=== PATIENT | female | born 1970 | race Caucasian/White ===

== ENCOUNTER 2021-10-17 09:36 | Emergency (ER) | payer OTHER, SELFPAY ==
[2021-10-17 09:57] VITALS: BP 123/80; PULSE 80; RESP 16; TEMP 36.6; O2SAT 98
--- NOTE | 2021-10-17 11:32 | ED.DENTAL ---
HPI - Dental/Oral General Chief complaint: Dental/Oral Stated complaint: Cold sores Time Seen by Provider: 10/17/21 11:23 Source: patient and RN notes reviewed Mode of arrival: ambulatory Limitations: no limitations History of Present Illness HPI Narrative: Patient presents today complaining of lesions to her left upper lip that she noted this morning. She did report some tingling to the upper lip yesterday prior to noting the lesions. She does have history of genital herpes, but no herpes lesions to the mouth. Reports some mild pain. She has tried no [id number] interventions prior to arrival. Related Data Home Medications Medication Instructions Recorded Confirmed aspirin [Adult Low Dose Aspirin] 81 mg PO DAILY 10/17/21 10/17/21 atorvastatin 10/17/21 cetirizine [Zyrtec] 10 mg PO DAILY 10/17/21 10/17/21 famotidine 10/17/21 levothyroxine 10/17/21 metformin 10/17/21 metoprolol tartrate 10/17/21 Allergies Allergy/AdvReac Type Severity Reaction Status Date / Time ibuprofen Allergy Rash Verified 10/17/21 10:11 Penicillins Allergy Swelling Verified 10/17/21 10:11 of Lip/Tongue/Throat Review of Systems Review of Systems: CONSTITUTIONAL: Denies body aches, fever, chills, or sweats. EYES: Denies visual changes, redness, or discharge. ENT: Denies rhinorrhea, congestion, sore throat, or otalgia.+ Lip lesion CARDIOVASCULAR: Denies chest pain, palpitations, or edema. RESPIRATORY: Denies cough or dyspnea. GASTROINTESTINAL: Denies abdominal pain, nausea, vomiting, or diarrhea. GENITOURINARY: Denies dysuria or hematuria. SKIN: Denies rash, itching, or wounds. MUSCULOSKELETAL: Denies back pain, joint pain, or myalgia. NEUROLOGIC: Denies headache, numbness, tingling, or weakness. PSYCH: Denies depression or anxiety. PMFSH Comments At time of signature, I have reviewed and agree with nursing past medical, surgical, social and family history unless otherwise noted. Please see nursing chart for further information. There is no relevant family history pertinent to the presenting complaint Exam Narrative: GENERAL: Well-appearing, well-nourished, and in no acute distress. HEAD: Normocephalic, atraumatic. EYES: EOMI. No redness or drainage. Conjunctivae normal. ENT: Mucous membranes pink and moist. Cluster of tiny vesicular lesions to the left upper lip. Mildly tender to palpation. NECK: Normal AROM. CHEST: No respiratory distress. EXTREMITIES: Normal range of motion. No edema. SKIN: Warm, dry, no rash. Capillary refill normal. Normal skin turgor. NEURO: No focal deficits. Alert and oriented x3. Gait steady. PSYCH: Normal affect. No signs of depression or anxiety. Course Vital Signs Vital signs: Vital Signs Temperature 98 F 10/17/21 09:57 Pulse Rate 80 10/17/21 09:57 Respiratory Rate 16 10/17/21 09:57 Blood Pressure 123/80 10/17/21 09:57 Pulse Oximetry 98 10/17/21 09:57 Temperature 98 F 10/17/21 09:57 Pulse Rate 80 10/17/21 09:57 Respiratory Rate 16 10/17/21 09:57 Blood Pressure 123/80 10/17/21 09:57 Pulse Oximetry 98 10/17/21 09:57 Reviewed. Pt has been instructed to follow up with her PCP regarding her elevated blood pressure today. MDM - Dental/Oral Differential Diagnosis Differential diagnosis: Likely other (Impetigo, herpes simplex) Critical Care Time Critical Care Time Critical Care Time: No Discharge Plan Discharge Clinical Impression: Primary herpes simplex infection of lips Patient Disposition: Home, Self-Care Condition: Stable Instructions: Oral Herpes Simplex Virus Infections (ED) Additional Instructions: Please take the acyclovir as prescribed for your cold sores. Take Tylenol or ibuprofen for pain. Follow-up with your doctor with any concerns. Patient Language: Sinhala Prescriptions: New acyclovir 400 mg tablet 400 mg PO TID 7 Days Qty: 21 RF: 0 No Action Adult Low Dose Aspirin 81 mg Tablet
== END 2021-10-17 11:41 | disposition home or self-care (01) ==
PROVIDERS: Emergency Provider Nurse Practitioner; PCP Family Medicine
DX: B00.1 Herpesviral vesicular dermatitis (principal); E78.00 Pure hypercholesterolemia, unspecified; I10 Essential (primary) hypertension; I25.2 Old myocardial infarction; K21.9 Gastro-esophageal reflux disease without esophagitis; E03.9 Hypothyroidism, unspecified
CPT/HCPCS: 99213; G0463

== ENCOUNTER 2022-07-26 13:41 | Emergency (ER) | payer OTHER, SELFPAY ==
[2022-07-26 13:48] VITALS: BP 133/94; PULSE 97; RESP 20; TEMP 36.4; O2SAT 98
--- NOTE | 2022-07-26 14:11 | ED.URI ---
HPI - URI/Sore Throat General Chief Complaint: Upper Respiratory Infection Stated Complaint: persistant cough Time Seen by Provider: 07/26/22 14:11 Source: patient, RN notes reviewed and old records reviewed Mode of arrival: ambulatory Limitations: no limitations History of Present Illness HPI Narrative: 52-year-old female who presents to [facility] care with complaints of 4-day history of persistent cough and some sore throat.Patient denies any known fevers, chills or sweat, denies any ear pain,reports some clear rhinitis at times and states some irritation to her throat with cough as main complaint. Patient reports that she has coughed so hard that he has wet her pants.Patient taking daily Zyrtec but has not taken any OTC cough medication afraid take much of anything OTC due to health conditions and present medications. Patient denies any wheezing or any shortness of breath. She has not had COVID vaccinations or flu shot. MD elicited complaint: cough Pertinent past history: pneumonia and other (bronchitis, [place], aortic aneurysm,) Onset (ago): day(s) (4) Treatments prior to arrival: none Related Data Home Medications Medication Instructions Recorded Confirmed aspirin 81 mg tablet 81 mg PO DAILY 10/17/21 07/26/22 cetirizine 10 mg capsule (Zyrtec) 10 mg PO DAILY 10/17/21 07/26/22 atorvastatin 40 mg tablet 40 mg DIRECTED 07/26/22 07/26/22 famotidine 20 mg tablet 20 mg DIRECTED 07/26/22 07/26/22 levothyroxine 125 mcg tablet 125 mcg AC 07/26/22 07/26/22 metformin 1,000 mg tablet 1,000 mg DIRECTED 07/26/22 07/26/22 metoprolol succinate 50 mg 50 mg PO DIRECTED 07/26/22 07/26/22 tablet,extended release 24 hr Allergies Allergy/AdvReac Type Severity Reaction Status Date / Time ibuprofen Allergy Rash Verified 10/17/21 10:11 Penicillins Allergy Swelling Verified 10/17/21 10:11 of Lip/Tongue/Throat Review of Systems Review of Systems: CONSTITUTIONAL: Denies fever, chills, or sweats. EYES: Denies visual changes, redness, or discharge. ENT: positive for rhinorrhea, congestion,scratchy sore throat, no otalgia. CARDIOVASCULAR: Denies chest pain, palpitations, or edema. RESPIRATORY: Positive for cough denies dyspnea. GASTROINTESTINAL: Denies abdominal pain, nausea, vomiting, or diarrhea. GENITOURINARY: Denies dysuria or hematuria. SKIN: rash or itching. MUSCULOSKELETAL: Denies back pain, joint pain, or myalgia. NEUROLOGIC: Denies headache, numbness, or weakness. PSYCHIATRIC: Denies anxiety or depression. All systems reviewed & are unremarkable except as noted in HPI and below PMFSH Past Medical History Medical History (Updated 07/29/22 @ 13:55 by Julia Joiner NP) Aortic aneurysm Diabetes Elevated cholesterol Hypertension Myocardial infarction Surgical History Surgical History (Updated 07/29/22 @ 13:52 by Julia Joiner NP) H/O thyroidectomy History of cholecystectomy History of tonsillectomy Social History Social History (Updated 07/29/22 @ 13:51 by Julia Joiner NP) Smoking status: Never smoker Alcohol intake: current Alcohol use details: rare social Substance use type: does not use Living arrangements: with family Gender identity (if verbalized by the patient): Female Comments At time of signature, agree with nursing past medical, surgical, social and family history. There is no relevant family history pertinent to the presenting complaint Exam Narrative: GENERAL: Well-appearing, well-nourished,obese and in no acute distress. HEAD: Normocephalic, atraumatic. EYES: PERRLA and EOMI. ENT: Nares with minimal redness clear rhinorrhea no epistaxis. Mucous membranes moist.TM's normal with good light reflex, throat with mild redness no lesions or exudates, no tonsils present, some post nasal drainage NECK: Supple. no lymphadenopathy CHEST: Clear to auscultation. No respiratory distress.SAO2 98% on room air harsh dry cough noted HEART: Regular rate and rhythm. No murmur heard.
== END 2022-07-26 15:13 | disposition home or self-care (01) ==
PROVIDERS: Emergency Provider Registered Nurse; PCP Family Medicine
DX: J06.9 Acute upper respiratory infection, unspecified (principal); R05.1 Acute cough; Z20.822 Contact with and (suspected) exposure to COVID-19; E11.9 Type 2 diabetes mellitus without complications; E78.00 Pure hypercholesterolemia, unspecified; I10 Essential (primary) hypertension; I25.2 Old myocardial infarction
CPT/HCPCS: 87081; 87426; 87880; 99213; C9803; G0463

== ENCOUNTER 2022-10-21 11:09 | Emergency (ER) | payer OTHER, SELFPAY ==
[2022-10-21 11:14] VITALS: BP 137/83; PULSE 112; RESP 16; TEMP 37; O2SAT 96
--- NOTE | 2022-10-21 13:10 | ED.URI ---
HPI - URI/Sore Throat General Chief Complaint: Upper Respiratory Infection Stated Complaint: throat nausea fever Time Seen by Provider: 10/21/22 13:10 Source: patient, RN notes reviewed and old records reviewed Mode of arrival: ambulatory Limitations: no limitations History of Present Illness HPI Narrative: 52 year old female presents to [facility] care with complaints of sore throat,vomiting, fevers up to 102F, feels shaky,with cough since last night. Patient reports that she has not had COVID or flu vaccines. Patient reports that cough is dry, denies any shortness of breath or wheezing patient does have history of asthma. Patient reports that her throat is sore especially with swallowing rates her pain 5/10 has taken Tylenol for her symptoms. MD elicited complaint: fever, cough, sore throat and other (vomiting) Pertinent past history: asthma Pain scale (0-10): 5 Treatments prior to arrival: acetaminophen Related Data Home Medications Medication Instructions Recorded Confirmed aspirin 81 mg tablet 81 mg PO DAILY 10/17/21 10/21/22 cetirizine 10 mg capsule (Zyrtec) 10 mg PO DAILY 10/17/21 10/21/22 atorvastatin 40 mg tablet 40 mg DIRECTED 07/26/22 10/21/22 levothyroxine 125 mcg tablet 125 mcg AC 07/26/22 10/21/22 metformin 1,000 mg tablet 1,000 mg DIRECTED 07/26/22 10/21/22 metoprolol succinate 50 mg 50 mg PO DIRECTED 07/26/22 10/21/22 tablet,extended release 24 hr Allergies Allergy/AdvReac Type Severity Reaction Status Date / Time naproxen Allergy Rash Verified 10/21/22 11:59 Penicillins Allergy Swelling Verified 10/21/22 11:59 of Lip/Tongue/Throat Review of Systems Review of Systems: CONSTITUTIONAL: Reports malaise, chills, sweats, or fever. EYES: Denies visual changes, redness, or discharge. ENT: Reports rhinorrhea, congestion, sinus pain,no otalgia positive for sore throat. CARDIOVASCULAR: Denies chest pain, palpitations, or edema. RESPIRATORY: Reports cough.? Denies dyspnea. GASTROINTESTINAL: Denies abdominal pain, nausea,reports vomiting, no diarrhea SKIN: Denies rash or itching. MUSCULOSKELETAL: Denies myalgia. NEUROLOGIC: Denies headache.reports feel shaky All systems reviewed & are unremarkable except as noted in HPI and below PMFSH Past Medical History Medical History Aortic aneurysm Diabetes Elevated cholesterol Hypertension Myocardial infarction Surgical History Surgical History H/O thyroidectomy History of cholecystectomy History of tonsillectomy Social History Social History Smoking status: Never smoker Alcohol intake: current Alcohol use details: rare social Substance use type: does not use Gender identity (if verbalized by the patient): Female Comments At time of signature, agree with nursing past medical, surgical, social and family history. There is no relevant family history pertinent to the presenting complaint Exam Narrative: GENERAL: Well-appearing, well-nourished, and in no acute distress. HEAD: Normocephalic EYES: PERRLA, conjunctivae clear ENT: Nares clear, turbinates edematous and erythematous, clear discharge. Mucous membranes moist. TM [place] with dull light reflex bilaterally; no tragal tenderness. Oropharynx erythematous without lesions. Tonsils not present throat red and without exudate, no drooling, no hoarseness, no trismus, uvula midline.post nasal drainage noted NECK: Supple. No lymphadenopathy CHEST: Clear to auscultation, breath sounds equal. No wheezing, rhonchi, rales, or stridor. No respiratory distress, speaks in full sentences.dry cough, SAO2 96% on room air HEART: Regular rate and rhythm. No murmur heard. SKIN: Warm, dry, no rash. NEURO: Alert and oriented x3. PSYCH: Normal mood and affect, anxious Course Course Emergency Course:
== END 2022-10-21 14:04 | disposition home or self-care (01) ==
PROVIDERS: Emergency Provider Registered Nurse; PCP Family Medicine
DX: J06.9 Acute upper respiratory infection, unspecified (principal); I25.2 Old myocardial infarction; E11.9 Type 2 diabetes mellitus without complications; I10 Essential (primary) hypertension; Z79.82 Long term (current) use of aspirin; Z79.84 Long term (current) use of oral hypoglycemic drugs
CPT/HCPCS: 87804; 99213; G0463

== ENCOUNTER 2023-02-04 11:03 | Emergency (ER) | payer OTHER, SELFPAY ==
[2023-02-04 11:09] VITALS: BP 126/90; PULSE 81; RESP 16; TEMP 36.3; O2SAT 98
--- NOTE | 2023-02-04 12:09 | ED.URI ---
HPI - URI/Sore Throat General Chief Complaint: Upper Respiratory Infection Stated Complaint: Sore Throat Time Seen by Provider: 02/04/23 12:00 Source: patient, RN notes reviewed and old records reviewed Mode of arrival: ambulatory Limitations: no limitations History of Present Illness HPI Narrative: 52-year-old female who presents to [facility] Care with complaints of 3 day history of cold symptoms and sore throat with known exposure to strep. Patient reports that she has had nasal drainage dry cough and also the sore throat. Patient has not taken any OTC medications for her symptoms, does take daily allergy medication.. MD elicited complaint: cough and sore throat Onset (ago): day(s) (3) Pain scale (0-10): 3 Able to tolerate fluids by mouth: Yes Treatments prior to arrival: none Related Data Home Medications Medication Instructions Recorded Confirmed aspirin 81 mg tablet 81 mg PO DAILY 10/17/21 10/21/22 cetirizine 10 mg capsule (Zyrtec) 10 mg PO DAILY 10/17/21 10/21/22 atorvastatin 40 mg tablet 40 mg DIRECTED 07/26/22 10/21/22 levothyroxine 125 mcg tablet 125 mcg AC 07/26/22 10/21/22 metformin 1,000 mg tablet 1,000 mg DIRECTED 07/26/22 10/21/22 metoprolol succinate 50 mg 50 mg PO DIRECTED 07/26/22 10/21/22 tablet,extended release 24 hr Allergies Allergy/AdvReac Type Severity Reaction Status Date / Time naproxen Allergy Rash Verified 10/21/22 11:59 Penicillins Allergy Swelling Verified 10/21/22 11:59 of Lip/Tongue/Throat Review of Systems Review of Systems: CONSTITUTIONAL: Denies malaise, chills, sweats, or fever. EYES: Denies visual changes, redness, or discharge. ENT: Reports rhinorrhea, congestion, sinus pain,no otalgia positive for sore throat. CARDIOVASCULAR: Denies chest pain, palpitations, or edema. RESPIRATORY: Reports cough.? Denies dyspnea. GASTROINTESTINAL: Denies abdominal pain, nausea, vomiting, diarrhea SKIN: Denies rash or itching. MUSCULOSKELETAL: Denies myalgia. NEUROLOGIC: Denies headache. All systems reviewed & are unremarkable except as noted in HPI and below PMFSH Past Medical History Medical History Aortic aneurysm Diabetes Elevated cholesterol Hypertension Myocardial infarction Surgical History Surgical History H/O thyroidectomy History of cholecystectomy History of tonsillectomy Social History Social History Smoking status: Never smoker Alcohol intake: current Alcohol use details: rare social Substance use type: does not use Living arrangements: with family Gender identity (if verbalized by the patient): Female Comments At time of signature, agree with nursing past medical, surgical, social and family history. There is no relevant family history pertinent to the presenting complaint Exam Narrative: GENERAL: Well-appearing, well-nourished, and in no acute distress. HEAD: Normocephalic EYES: PERRLA, conjunctivae clear ENT: Nares clear, turbinates edematous and erythematous, clear discharge. Mucous membranes moist. TM [place] with dull light reflex bilaterally; no tragal tenderness. Oropharynx erythematous without lesions. Tonsils not enlarged and without exudate, no drooling, no hoarseness, no trismus, uvula midline.post nasal congestion present NECK: Supple. No lymphadenopathy CHEST: Clear to auscultation, breath sounds equal. No wheezing, rhonchi, rales, or stridor. No respiratory distress, speaks in full sentences.cough noted, SAO2 98% on room air HEART: Regular rate and rhythm. No murmur heard. SKIN: Warm, dry, no rash. NEURO: Alert and oriented x3. PSYCH: Normal mood and affect Course Course Emergency Course: Patient is aware of diagnosis, understands and agrees to treatment plan.? Anticipatory guidance given.? Patient agrees to follow-u
== END 2023-02-04 12:23 | disposition home or self-care (01) ==
PROVIDERS: Emergency Provider Registered Nurse; PCP Family Medicine
DX: J02.9 Acute pharyngitis, unspecified (principal); E11.9 Type 2 diabetes mellitus without complications; I10 Essential (primary) hypertension; I25.2 Old myocardial infarction
CPT/HCPCS: 87081; 87880; 99213; G0463

== ENCOUNTER 2023-03-08 09:47 | Emergency (ER) | payer OTHER, SELFPAY ==
[2023-03-08 09:54] VITALS: BP 129/80; PULSE 78; RESP 16; TEMP 36.7; O2SAT 97
--- NOTE | 2023-03-08 09:55 | ED.GENADULT ---
HPI - General Adult General Chief complaint: Urogenital-Female Stated complaint: Vaginal Issue/STD Source: patient and RN notes reviewed History of Present Illness HPI narrative: 53 yo F presents to urgent care with complaints of a herpes outbreak for the last couple days. Pt states she has a hx of this and she knows this is it. Pt reports the rash spreading to her buttocks as well. Pt also states she has a yeast infection due to the itchiness and white vaginal discharge she is having. Pt denies any possibility of STI b/c she is not sexually active. Pt also reports drainage from her left eye this morning. Pt denies any visual disturbance, chest pain, SOB, abdominal pain, vomiting, fevers, or chills. Related Data Home Medications Medication Instructions Recorded Confirmed cetirizine 10 mg capsule (Zyrtec) 10 mg PO DAILY 10/17/21 03/08/23 atorvastatin 40 mg tablet 40 mg DIRECTED 07/26/22 03/08/23 levothyroxine 125 mcg tablet 125 mcg AC 07/26/22 03/08/23 metformin 1,000 mg tablet 1,000 mg DIRECTED 07/26/22 03/08/23 metoprolol succinate 50 mg 50 mg PO DIRECTED 07/26/22 03/08/23 tablet,extended release 24 hr aspirin 81 mg capsule 81 mg PO DAILY 03/08/23 03/08/23 Allergies Allergy/AdvReac Type Severity Reaction Status Date / Time naproxen Allergy Rash Verified 03/08/23 09:58 Penicillins Allergy Swelling Verified 03/08/23 09:58 of Lip/Tongue/Throat Review of Systems Review of Systems: Pertinent positives and pertinent negatives per HPI. [facility] Past Medical History Medical History Aortic aneurysm Diabetes Elevated cholesterol Hypertension Myocardial infarction Surgical History Surgical History H/O thyroidectomy History of cholecystectomy History of tonsillectomy Social History Social History Smoking status: Never smoker Alcohol intake: current Alcohol use details: rare social Substance use type: does not use Living arrangements: with family Gender identity (if verbalized by the patient): Female Comments At the time of my signature, I reviewed and agree with the nursing past medical, surgical, social, and family history. There is no relevant family history pertinent to the patient complaint. Exam Narrative: GENERAL: This is a well-nourished, well-developed patient, in no apparent distress. HEAD: normocephalic, atraumatic. EYES: PERRL. Sclera clear/white. Vision is grossly intact. left lower conjunctiva is injected. EARS: External ears normal, auditory canals clear and without drainage, TMs normal without perforation. Hearing grossly intact. NOSE: External nose normal with no obvious nasal discharge, nares without redness, no rhinorrhea. THROAT: Mucous membranes moist, posterior pharynx clear. NECK: Neck supple, non-tender without lymphadenopathy, masses or thyromegaly. CARDIOVASCULAR: Regular rate and rhythm without murmurs, gallops, or rubs. RESPIRATORY: Clear to auscultation. Breath sounds equal bilaterally. No wheezes, rales, or rhonchi. GASTROINTESTINAL: Abdomen soft, non-tender, nondistended. Bowel sounds are active. No hepato-splenomegaly, or palpable masses. No guarding. SKIN: one blister to right cheek NEURO: awake, alert, and oriented to person, place and time. There were no obvious focal neurologic abnormalities. EXTREMITIES: No clubbing, cyanosis, or edema. No joint tenderness, effusion, or edema noted. BACK: Nontender without deformity or crepitance. No flank tenderness. Course Course Level of Care: Express Care Visit Vital Signs Vital signs: Vital Signs Temperature 98.1 F 03/08/23 09:54 Pulse Rate 78 03/08/23 09:54 Respiratory Rate 16 03/08/23 09:54 Blood Pressure 129/80 03/08/23 09:54 Pulse Oximetry 97 03/08/23 09:54 Oxygen Delivery Room Air 03/08/23 09:54 Temperature
[2023-03-08 10:00] VITALS: BP 129/80; PULSE 78; RESP 16; TEMP 36.7; O2SAT 97
== END 2023-03-08 10:25 | disposition home or self-care (01) ==
PROVIDERS: Emergency Provider Nurse Practitioner Family; PCP Family Medicine
DX: B37.31 Acute candidiasis of vulva and vagina (principal); H10.9 Unspecified conjunctivitis; E11.9 Type 2 diabetes mellitus without complications; E78.00 Pure hypercholesterolemia, unspecified; I10 Essential (primary) hypertension; I25.2 Old myocardial infarction; E89.0 Postprocedural hypothyroidism; Z79.84 Long term (current) use of oral hypoglycemic drugs; Z79.82 Long term (current) use of aspirin
CPT/HCPCS: 99213; G0463

== ENCOUNTER 2023-03-17 10:28 | Emergency (ER) | payer OTHER, SELFPAY ==
--- NOTE | 2023-03-17 10:30 | ED.LOWEXIN ---
HPI - Extremity Injury (Lower) General Chief Complaint: Extremity Injury, Lower Stated Complaint: Right foot pain Time Seen by Provider: 03/17/23 11:07 Source: patient and RN notes reviewed Mode of arrival: ambulatory Limitations: no limitations History of Present Illness HPI Narrative: 53-year-old female presents with concern for right ankle pain. She reports ?she was messing around with her boyfriend and thinks she came down it wrong.? She reports right ankle pain, swelling. Reports pain at rest and worsening pain with weight-bearing. She took Tylenol without relief. Reports she cannot take ibuprofen or naproxen. She denies open skin, redness, warmth, bruising MD complaint: ankle injury Related Data Home Medications Medication Instructions Recorded Confirmed cetirizine 10 mg capsule (Zyrtec) 10 mg PO DAILY 10/17/21 03/17/23 atorvastatin 40 mg tablet 40 mg DIRECTED 07/26/22 03/17/23 levothyroxine 125 mcg tablet 125 mcg AC 07/26/22 03/17/23 metformin 1,000 mg tablet 1,000 mg DIRECTED 07/26/22 03/17/23 metoprolol succinate 50 mg 50 mg PO DIRECTED 07/26/22 03/17/23 tablet,extended release 24 hr aspirin 81 mg capsule 81 mg PO DAILY 03/08/23 03/17/23 famotidine 20 mg tablet 20 mg PO DAILY 03/17/23 03/17/23 losartan 25 mg tablet 25 mg PO DAILY 03/17/23 03/17/23 Allergies Allergy/AdvReac Type Severity Reaction Status Date / Time naproxen Allergy Rash Verified 03/17/23 10:36 Penicillins Allergy Swelling Verified 03/17/23 10:36 of Lip/Tongue/Throat Review of Systems Review of Systems: CONSTITUTIONAL: Denies malaise, chills, sweats, or fever. SKIN: Denies rash or itching, open skin, laceration, abrasion, redness, warmth, swelling. MUSCULOSKELETAL: Reports right ankle pain NEUROLOGIC: Denies numbness, weakness All systems reviewed & are unremarkable except as noted in HPI and below PMFSH Past Medical History Medical History Aortic aneurysm Diabetes Elevated cholesterol Hypertension Myocardial infarction Surgical History Surgical History H/O thyroidectomy History of cholecystectomy History of tonsillectomy Social History Social History Smoking status: Never smoker Alcohol intake: current Alcohol use details: rare social Substance use type: does not use Living arrangements: with family Gender identity (if verbalized by the patient): Female Comments At time of signature, agree with nursing past medical, surgical, social and family history. There is no relevant family history pertinent to the presenting complaint Exam Narrative: GENERAL: Well-appearing, well-nourished, and in no acute distress. HEAD: Normocephalic, atraumatic. EYES: PERRLA, conjunctivae clear NECK: Supple. CHEST: Speaks in full sentences. No respiratory distress. HEART: Regular rate and rhythm. Normal and equal peripheral pulses. EXTREMITIES: Right ankle has grossly normal strength and sensation, grossly normal range of motion. Mild circumferential edema, no erythema or ecchymosis. 5/5 strength with digit and ankle flexion and extension. Normal sensation with sensitivity to light touch and pain. General tenderness. No open wounds, no skin tenting, no devitalized tissue or atrophy, no trophic changes, no obvious deformity, alignment normal, nearby joints and structures intact. Distal pulses palpable and equal bilaterally, skin warm, dry, pink. Capillary refill less than 3 seconds. SKIN: Warm, dry, no rash. NEURO: Alert and oriented x3. PSYCH: Normal mood and affect Course Course Emergency Course: Patient is aware of diagnosis, understands and agrees to treatment plan. Anticipatory guidance given. Patient agrees to follow-up as directed and is aware of reasons to seek care at the emergency department. Portions of this record may mistry
[2023-03-17 10:33] VITALS: BP 133/75; PULSE 79; RESP 16; TEMP 36.6; O2SAT 97
== END 2023-03-17 11:26 | disposition home or self-care (01) ==
PROVIDERS: Emergency Provider Nurse Practitioner; PCP Family Medicine
DX: S93.402A Sprain of unspecified ligament of left ankle, initial encounter (principal); X58.XXXA Exposure to other specified factors, initial encounter; Y93.83 Activity, rough housing and horseplay; Z79.82 Long term (current) use of aspirin; E11.9 Type 2 diabetes mellitus without complications; E78.00 Pure hypercholesterolemia, unspecified; I10 Essential (primary) hypertension; I34.1 Nonrheumatic mitral (valve) prolapse
CPT/HCPCS: 73610; 99213; G0463

== ENCOUNTER 2023-11-26 11:13 | Emergency (ER) | payer OTHER, SELFPAY ==
[2023-11-26 11:18] VITALS: BP 133/80; PULSE 98; RESP 16; TEMP 36.8; O2SAT 96
--- NOTE | 2023-11-26 11:50 | ED.URI ---
HPI - URI/Sore Throat General Chief Complaint: Upper Respiratory Infection Stated Complaint: Chest Pain History of Present Illness HPI Narrative: Patient presents with loose nonproductive cough generalized body aches and nasal congestion. Patient states she has a sore throat but denies any trouble swallowing no drooling. Patient states her 12-year-old child has the same symptoms and was just tested and all his tests were negative for COVID influenza and strep. Patient states she does have a history of asthma but denies any shortness of breath and no chest pain. Patient states she has a history of bronchitis and feels if her symptoms are the same and has the chest congestion as she did when she had bronchitis. Related Data Home Medications Medication Instructions Recorded Confirmed cetirizine 10 mg capsule (Zyrtec) 10 mg PO DAILY 10/17/21 03/17/23 atorvastatin 40 mg tablet 40 mg DIRECTED 07/26/22 03/17/23 levothyroxine 125 mcg tablet 125 mcg AC 07/26/22 03/17/23 metformin 1,000 mg tablet 1,000 mg DIRECTED 07/26/22 03/17/23 metoprolol succinate 50 mg 50 mg PO DIRECTED 07/26/22 03/17/23 tablet,extended release 24 hr aspirin 81 mg capsule 81 mg PO DAILY 03/08/23 03/17/23 famotidine 20 mg tablet 20 mg PO DAILY 03/17/23 03/17/23 ergocalciferol (vitamin D2) 1,250 11/26/23 mcg (50,000 unit) capsule ezetimibe 10 mg tablet mg 11/26/23 insulin glargine 100 unit/mL (3 unit subcut 11/26/23 mL) subcutaneous pen (Lantus Solostar U-100 Insulin) sumatriptan succinate 25 mg tablet mg PO 11/26/23 Allergies Allergy/AdvReac Type Severity Reaction Status Date / Time naproxen Allergy Rash Verified 11/26/23 11:23 Penicillins Allergy Swelling Verified 11/26/23 11:23 of Lip/Tongue/Throat Review of Systems Review of Systems: CONSTITUTIONAL: Denies chills, or sweats. Reports fever and generalized body aches EYES: Denies visual changes, redness, or discharge. ENT: Denies otalgia. Reports nasal congestion runny nose and sore throat CARDIOVASCULAR: Denies chest pain, palpitations, or edema. RESPIRATORY: Denies dyspnea. Reports occasional cough GASTROINTESTINAL: Denies abdominal pain, nausea, vomiting, or diarrhea. GENITOURINARY: Denies dysuria or hematuria. SKIN: Denies rash or itching. MUSCULOSKELETAL: Denies back pain, joint pain, or myalgia. Reports generalized body aches NEUROLOGIC: Denies headache, numbness, or weakness. PSYCHIATRIC: Denies anxiety or depression. [facility] Past Medical History Medical History Aortic aneurysm Diabetes Elevated cholesterol Hypertension Myocardial infarction Surgical History Surgical History H/O thyroidectomy History of cholecystectomy History of tonsillectomy Social History Social History Smoking status: Never smoker Alcohol intake: current Alcohol use details: rare social Substance use type: does not use Living arrangements: with family Gender identity (if verbalized by the patient): Female Comments At time of signature, agree with nursing past medical, surgical, social and family history. There is no relevant family history pertinent to the presenting complaint Exam Narrative: The patient is a well-developed, well-nourished in no acute distress. SKIN: Skin is warm and dry without erythema, swelling or exudate. There is good turgor. No tenting. HEAD: Atraumatic. Normocephalic. No temporal or scalp tenderness. EYES: Moist and bright. Sclera and conjunctivae normal. No discharge. PERRLA. Extraocular motions intact. Gross visual acuity intact. EARS: Pinna is normal shape and contour. Clear external auditory canals. TM pearly aldrich with good cone of light, no erythema or suppuration. Bilateral cerumen noted no gross hearing deficit. NOSE: pink, moist mucosa with good air movement.
== END 2023-11-26 12:11 | disposition home or self-care (01) ==
PROVIDERS: Emergency Provider Nurse Practitioner Family; PCP Family Medicine
DX: J06.9 Acute upper respiratory infection, unspecified (principal); E11.9 Type 2 diabetes mellitus without complications; I10 Essential (primary) hypertension; I25.2 Old myocardial infarction; Z79.899 Other long term (current) drug therapy; Z79.4 Long term (current) use of insulin; Z20.822 Contact with and (suspected) exposure to COVID-19
CPT/HCPCS: 87081; 87426; 87804; 87880; 99213; C9803; G0463

== ENCOUNTER 2024-02-20 17:51 | Emergency (ER) | payer OTHER, SELFPAY ==
--- NOTE | 2024-02-20 17:54 | ED.GENADULT ---
HPI - General Adult General Stated complaint: Facial Swelling/Toothache Source: patient, RN notes reviewed and old records reviewed Mode of arrival: ambulatory Limitations: no limitations History of Present Illness HPI narrative: 54-year-old female presents to [facility] with complaint of right upper dental pain that started several days ago. Patient states now having pain and swelling in jaw in pain and sores on roof of mouth. Patient states took daughter's clindamycin from previous visit. Patient states took 4 tablets. Patient states did not help. Patient states does have a dentist in [place] which she did not call. Related Data Home Medications Medication Instructions Recorded Confirmed cetirizine 10 mg capsule (Zyrtec) 10 mg PO DAILY 10/17/21 02/20/24 atorvastatin 40 mg tablet 40 mg DIRECTED 07/26/22 02/20/24 levothyroxine 125 mcg tablet 125 mcg PO DAILY 07/26/22 02/20/24 metformin 1,000 mg tablet 1,000 mg PO BID 07/26/22 02/20/24 metoprolol succinate 50 mg 50 mg PO DAILY 07/26/22 02/20/24 tablet,extended release 24 hr aspirin 81 mg capsule 81 mg PO DAILY 03/08/23 02/20/24 famotidine 20 mg tablet 20 mg PO DAILY 03/17/23 02/20/24 ergocalciferol (vitamin D2) 1,250 See Rx Instructions .Route .COMPLEX 11/26/23 02/20/24 mcg (50,000 unit) capsule ezetimibe 10 mg tablet 10 mg PO DAILY 11/26/23 02/20/24 insulin glargine 100 unit/mL (3 See Rx Instructions .Route .COMPLEX 11/26/23 02/20/24 mL) subcutaneous pen (Lantus Solostar U-100 Insulin) sumatriptan succinate 25 mg tablet See Rx Instructions .Route .COMPLEX 11/26/23 02/20/24 gabapentin 300 mg capsule 300 mg PO DAILY 02/20/24 02/20/24 Allergies Allergy/AdvReac Type Severity Reaction Status Date / Time naproxen Allergy Rash Verified 02/20/24 18:04 Penicillins Allergy Swelling Verified 02/20/24 18:04 of Lip/Tongue/Throat Review of Systems Constitutional: Constitutional: Reports no additional constitutional complaints, Denies body ache(s), Denies chills, Denies fatigue, Denies fever(s) and Denies headache(s) Eyes: Eyes: Reports no additional eye complaints and Denies blurry vision ENT: Reports system reviewed and no additional complaints, except as documented, Reports dental pain, Denies vertigo, Denies dizziness, Denies ear discharge, Denies otalgia, Denies facial pain, Denies headache(s), Reports mouth pain, Denies nasal congestion, Denies nasal discharge, Denies sinus pain, Denies sinus pressure and Denies sore throat Cardiovascular: Cardiovascular: Reports no additional cardiovascular complaints, Denies chest pain, Denies chest pain at rest, Denies rapid heart rate and Denies dyspnea Respiratory: Respiratory: Reports no additional respiratory complaints, Denies chest congestion, Denies cough, Denies pain on inspiration, Denies pain with cough and Denies dyspnea Gastrointestinal: Gastrointestinal: Denies abdominal pain, Denies diarrhea, Denies nausea and Denies vomiting Integumentary/Breasts: Skin/Breast: Denies rash Neurologic: Reports system reviewed and no additional complaints, except as documented, Denies vertigo, Denies dizziness and Denies headache(s) Endocrine: Endocrine: Denies fatigue [facility] Past Medical History Medical History Aortic aneurysm Diabetes Elevated cholesterol Hypertension Myocardial infarction Surgical History Surgical History H/O thyroidectomy History of cholecystectomy History of tonsillectomy Social History Social History Smoking status: Never smoker Alcohol intake: current Alcohol use details: rare social Substance use type: does not use Living arrangements: with family Gender identity (if verbalized by the patient): Female Comments At the time of my signature, I reviewed and agree with the nursing past medical, surgical
[2024-02-20 17:55] VITALS: BP 150/98; PULSE 91; RESP 20; TEMP 37.2; O2SAT 97
== END 2024-02-20 18:15 | disposition home or self-care (01) ==
PROVIDERS: Emergency Provider Registered Nurse; PCP Family Medicine
DX: K04.7 Periapical abscess without sinus (principal); E11.9 Type 2 diabetes mellitus without complications; Z79.4 Long term (current) use of insulin; Z79.84 Long term (current) use of oral hypoglycemic drugs; E78.00 Pure hypercholesterolemia, unspecified; I10 Essential (primary) hypertension; I25.2 Old myocardial infarction; E89.0 Postprocedural hypothyroidism
CPT/HCPCS: 99213; G0463

== ENCOUNTER 2024-06-06 19:19 | Emergency (ER) | payer OTHER, SELFPAY ==
[2024-06-06 19:33] VITALS: BP 143/88; PULSE 95; RESP 16; TEMP 36.9; O2SAT 98
--- NOTE | 2024-06-06 19:38 | ED.ABDPAIN ---
HPI - Abdominal Pain General Chief Complaint: Upper Respiratory Infection Stated Complaint: throat/ears/diarrhea/fever History of Present Illness HPI narrative: Patient is a 54-year-old female, past medical history significant for GERD, hyperlipidemia, diabetes, [place] and aortic aneurysm, presents to [facility] with 24 hour history of sore throat, ear pressure, sinus pressure, clear rhinorrhea and diarrhea. She states that she has had frequent loose watery stools in the last 12 hours with some generalized abdominal cramping just before bowel movement occurs. She denies known fevers but has felt slightly chilled this evening. She denies vomiting but has felt slightly nauseated at times as well. She does have a mild cough starting. She denies known sick contacts recent travel, she has not received antibiotic therapy in the last 30 days, she has no hematochezia or melena. Her blood sugars have been controlled despite feeling unwell. She denies any additional associated symptoms or modifying factors. Related Data Home Medications Medication Instructions Recorded Confirmed cetirizine 10 mg capsule (Zyrtec) 10 mg PO DAILY 10/17/21 02/20/24 atorvastatin 40 mg tablet 40 mg DIRECTED 07/26/22 02/20/24 levothyroxine 125 mcg tablet 125 mcg PO DAILY 07/26/22 02/20/24 metformin 1,000 mg tablet 1,000 mg PO BID 07/26/22 02/20/24 metoprolol succinate 50 mg 50 mg PO DAILY 07/26/22 02/20/24 tablet,extended release 24 hr aspirin 81 mg capsule 81 mg PO DAILY 03/08/23 02/20/24 famotidine 20 mg tablet 20 mg PO DAILY 03/17/23 02/20/24 ergocalciferol (vitamin D2) 1,250 See Rx Instructions .Route .COMPLEX 11/26/23 02/20/24 mcg (50,000 unit) capsule ezetimibe 10 mg tablet 10 mg PO DAILY 11/26/23 02/20/24 insulin glargine 100 unit/mL (3 See Rx Instructions .Route .COMPLEX 11/26/23 02/20/24 mL) subcutaneous pen (Lantus Solostar U-100 Insulin) gabapentin 300 mg capsule 300 mg PO DAILY 02/20/24 02/20/24 Allergies Allergy/AdvReac Type Severity Reaction Status Date / Time naproxen Allergy Rash Verified 02/20/24 18:04 Penicillins Allergy Swelling Verified 02/20/24 18:04 of Lip/Tongue/Throat Review of Systems Constitutional: Comments: refer to HPI ENT: Comments: refer to HPI Gastrointestinal: Comments: Refer to HPI [facility] Past Medical History Medical History Aortic aneurysm Diabetes Elevated cholesterol Hypertension Myocardial infarction Surgical History Surgical History H/O thyroidectomy History of cholecystectomy History of tonsillectomy Social History Social History Smoking status: Never smoker Alcohol intake: current Alcohol use details: rare social Substance use type: does not use Living arrangements: with family Gender identity (if verbalized by the patient): Female Exam Const: General: healthy appearing, no acute distress and alert Nutritional Appearance: obese Orientation/consciousness: patient oriented x3 Limitations: no limitations HENMT: Head: normal to inspection Ears: external ears normal and TM abnormal ( TMs are retracted bilaterally but remained translucent.) Face/Nose/Sinus: Normal external nose present and Normal nares present Face and sinus: normal facial exam and sinuses nontender Mouth: Yes Normal oral and palatal mucosa present, Yes lip normal and Yes moist mucous membranes Throat: uvula midline Other: Posterior pharyngeal injection noted, exudate or gross erythema, no tonsillar swelling, uvula midline Eyes: Conjunctivae: conjunctivae normal Pupils: Equal, round and reactive pupils present EOM: EOMs intact bilaterally Direct Ophthalmoscopy: no photophobia Neck: Neck: normal visual inspection, no lymphadenopathy and no meningeal signs Resp: Effort & Inspection: nor
== END 2024-06-06 19:53 | disposition home or self-care (01) ==
PROVIDERS: Emergency Provider Nurse Practitioner Family; PCP Family Medicine
DX: B34.9 Viral infection, unspecified (principal); R19.7 Diarrhea, unspecified; E11.9 Type 2 diabetes mellitus without complications; Z79.4 Long term (current) use of insulin; Z79.84 Long term (current) use of oral hypoglycemic drugs; E78.00 Pure hypercholesterolemia, unspecified; I10 Essential (primary) hypertension; I25.2 Old myocardial infarction; E89.0 Postprocedural hypothyroidism; Z79.82 Long term (current) use of aspirin
CPT/HCPCS: 99213; G0463

== ENCOUNTER 2024-08-23 17:58 | Emergency (ER) | payer OTHER, SELFPAY ==
[2024-08-23 18:00] VITALS: BP 136/92; PULSE 91; RESP 16; TEMP 37.2; O2SAT 97
--- NOTE | 2024-08-23 18:45 | ED.URI ---
HPI - URI/Sore Throat General Chief Complaint: Upper Respiratory Infection Stated Complaint: Congestion/Ear Pain/Cough Time Seen by Provider: 08/23/24 18:45 Source: patient Mode of arrival: ambulatory Limitations: no limitations History of Present Illness HPI Narrative: 54-year-old female with history of hypertension and diabetes presented for complaints of sinus pressure and congestion, headache, cough, and sore throat for over 1 week. Started with diarrhea today. Using inhaler more often. Son had similar symptoms recently. She denies shortness of breath, wheezing nausea vomiting, fevers or chills. Related Data Home Medications Medication Instructions Recorded Confirmed atorvastatin 40 mg tablet 40 mg DIRECTED 07/26/22 02/20/24 levothyroxine 125 mcg tablet 125 mcg PO DAILY 07/26/22 02/20/24 metformin 1,000 mg tablet 1,000 mg PO BID 07/26/22 02/20/24 metoprolol succinate 50 mg 50 mg PO DAILY 07/26/22 02/20/24 tablet,extended release 24 hr aspirin 81 mg capsule 81 mg PO DAILY 03/08/23 02/20/24 famotidine 20 mg tablet 20 mg PO DAILY 03/17/23 02/20/24 ergocalciferol (vitamin D2) 1,250 See Rx Instructions .Route .COMPLEX 11/26/23 02/20/24 mcg (50,000 unit) capsule ezetimibe 10 mg tablet 10 mg PO DAILY 11/26/23 02/20/24 insulin glargine 100 unit/mL (3 See Rx Instructions .Route .COMPLEX 11/26/23 02/20/24 mL) subcutaneous pen (Lantus Solostar U-100 Insulin) gabapentin 300 mg capsule 300 mg PO DAILY 02/20/24 02/20/24 Allergies Allergy/AdvReac Type Severity Reaction Status Date / Time naproxen Allergy Rash Verified 02/20/24 18:04 Penicillins Allergy Swelling Verified 02/20/24 18:04 of Lip/Tongue/Throat Review of Systems Review of Systems: CONSTITUTIONAL: Denies body aches, fever, chills, or sweats. EYES: Denies visual changes, redness, or discharge. ENT: Reports rhinorrhea, congestion, sore throat,otalgia. CARDIOVASCULAR: Denies chest pain, palpitations, or edema. RESPIRATORY: Reports cough, denies sob, wheezing. GASTROINTESTINAL: Denies abdominal pain, nausea, vomiting, reports diarrhea. SKIN: Denies rash, itching, or wounds. NEUROLOGIC: reports headache. All systems reviewed & are unremarkable except as noted in HPI and below PMFSH Past Medical History Medical History Aortic aneurysm Diabetes Elevated cholesterol Hypertension Myocardial infarction Surgical History Surgical History H/O thyroidectomy History of cholecystectomy History of tonsillectomy Social History Social History Smoking status: Never smoker Alcohol intake: current Alcohol use details: rare social Substance use type: does not use Living arrangements: with family Gender identity (if verbalized by the patient): Female Comments At time of signature, I have reviewed and agree with nursing past medical, surgical, social and family history unless otherwise noted. Please see nursing chart for further information. There is no relevant family history pertinent to the presenting complaint Exam Narrative: GENERAL: Well-appearing, in no acute distress. EYES: EOMI. No redness or drainage. Conjunctivae normal. ENT: Mucous membranes pink and moist. No rhinorrhea. TMs normal bilaterally. Throat normal. Uvula midline. NECK: Normal AROM. Supple. CHEST: No respiratory distress. lungs clear to all hanna. HEART: Regular rate and rhythm. No murmur appreciated. SKIN: Warm, dry, no rash. Capillary refill normal. Normal skin turgor. NEURO: Alert and oriented x3. Gait steady. Course Course Emergency Course: Patient is aware of diagnosis, understands and agrees to treatment plan. Anticipatory guidance given. Patient agrees to follow-up as directed and is aware of reasons to seek care at the emergency department. Portions of this r
== END 2024-08-23 18:58 | disposition home or self-care (01) ==
PROVIDERS: Emergency Provider Nurse Practitioner Family; PCP Family Medicine
DX: J06.9 Acute upper respiratory infection, unspecified (principal); I10 Essential (primary) hypertension; E11.9 Type 2 diabetes mellitus without complications; E78.00 Pure hypercholesterolemia, unspecified; I25.2 Old myocardial infarction; Z79.84 Long term (current) use of oral hypoglycemic drugs; Z79.4 Long term (current) use of insulin
CPT/HCPCS: 99213; G0463

== ENCOUNTER 2024-10-16 11:00 | Emergency (ER) | payer OTHER, SELFPAY ==
[2024-10-16 11:10] VITALS: BP 114/84; PULSE 88; RESP 16; TEMP 37; O2SAT 97
--- NOTE | 2024-10-16 11:27 | ED.URI ---
HPI - URI/Sore Throat General Chief Complaint: Upper Respiratory Infection Stated Complaint: Vomtting Time Seen by Provider: 10/16/24 11:24 Source: patient, RN notes reviewed and old records reviewed Mode of arrival: ambulatory Limitations: no limitations History of Present Illness HPI Narrative: 54 year old female who presents to [facility] care with complaints of awakening this morning at 0100 with headache, vomiting, body aches, sore throat and chills and some ear discomfort. Patient reports that she took some Tylenol for her symptoms. Patient reports no known fevers, denies any recent ill contact exposure. MD elicited complaint: sore throat, rhinorrhea, nasal congestion and other (headache, body aches, some ear discomfort) Onset (ago): hour(s) (0100) Pain scale (0-10): 4 Able to tolerate fluids by mouth: Yes Treatments prior to arrival: acetaminophen Related Data Home Medications Medication Instructions Recorded Confirmed atorvastatin 40 mg tablet 40 mg DIRECTED 07/26/22 10/16/24 levothyroxine 125 mcg tablet 125 mcg PO DAILY 07/26/22 10/16/24 metformin 1,000 mg tablet 1,000 mg PO BID 07/26/22 10/16/24 metoprolol succinate 50 mg 50 mg PO DAILY 07/26/22 10/16/24 tablet,extended release 24 hr aspirin 81 mg capsule 81 mg PO DAILY 03/08/23 10/16/24 famotidine 20 mg tablet 20 mg PO DAILY 03/17/23 10/16/24 ergocalciferol (vitamin D2) 1,250 See Rx Instructions .Route .COMPLEX 11/26/23 10/16/24 mcg (50,000 unit) capsule ezetimibe 10 mg tablet 10 mg PO DAILY 11/26/23 10/16/24 insulin glargine 100 unit/mL (3 See Rx Instructions .Route .COMPLEX 11/26/23 10/16/24 mL) subcutaneous pen (Lantus Solostar U-100 Insulin) gabapentin 300 mg capsule 300 mg PO DAILY 02/20/24 10/16/24 Allergies Allergy/AdvReac Type Severity Reaction Status Date / Time naproxen Allergy Rash Verified 10/16/24 11:37 Penicillins Allergy Swelling Verified 10/16/24 11:37 of Lip/Tongue/Throat Review of Systems Review of Systems: CONSTITUTIONAL: Reports malaise, chills, sweats, no known fever. EYES: Denies visual changes, redness, or discharge. ENT: Reports rhinorrhea, congestion, sinus pain, otalgia and sore throat. CARDIOVASCULAR: Denies chest pain, palpitations, or edema. RESPIRATORY: Reports no cough.? Denies dyspnea. GASTROINTESTINAL: Denies abdominal pain, nausea, states one incident of vomiting,no diarrhea SKIN: Denies rash or itching. MUSCULOSKELETAL: Reports myalgia. NEUROLOGIC: Reports headache. All systems reviewed & are unremarkable except as noted in HPI and below PMFSH Past Medical History Medical History Aortic aneurysm Diabetes Elevated cholesterol Hypertension Myocardial infarction Surgical History Surgical History H/O thyroidectomy History of cholecystectomy History of tonsillectomy Social History Social History Smoking status: Never smoker Alcohol intake: current Alcohol use details: rare social Substance use type: does not use Living arrangements: with family Gender identity (if verbalized by the patient): Female Comments At time of signature, agree with nursing past medical, surgical, social and family history. There is no relevant family history pertinent to the presenting complaint Exam Narrative: GENERAL: Well-appearing, well-nourished, obese and in no acute distress. HEAD: Normocephalic EYES: PERRLA, conjunctivae clear ENT: Nares clear, turbinates edematous and erythematous, clear discharge. Mucous membranes moist. left TM red,Right TM p[place] with dull light reflex; no tragal tenderness. Oropharynx erythematous without lesions. Tonsils not present and throat without exudate, no drooling, no hoarseness, no trismus, uvula midline. NECK: Supple. No lymphadenopathy CHEST: Clear to auscultation, breath sounds equal. No wheezing, rhonchi, rales, or stridor. No respiratory distress, speaks in full sentences.SAO2 97% on room air HEART: Regular rate and rhythm. No murmur heard. SKIN: Warm, dry, no rash. NEURO: Alert and oriented x3. PSYCH: Normal mood and affect Course Course Emergency Course: Patient is aware of diagnosis, understands and agrees to treatment plan.? Anticipatory guidance given.? Patient agrees to follow-up as directed and is aware of reasons to seek care at the emergency department. Portions of this record may have been created with voice recognition software Level of Care: Express Care Visit Vital Signs Vital signs: Vital Signs Temperature 37.0 C 10/16/24 11:10 Pulse Rate 88 10/16/24 11:10 Respiratory Rate 16 10/16/24 11:10 Blood Pressure 114/84 10/16/24 11:10 Pulse Oximetry 97 10/16/24 11:10 Oxygen Delivery Room Air 10/16/24 11:10 Temperature 37.0 C 10/16/24 11:10 Pulse Rate 88 10/16/24 11:10 Respiratory Rate 16 10/16/24 11:10 Blood Pressure 114/84 10/16/24 11:10 Pulse Oximetry 97 10/16/24 11:10 Oxygen Delivery Room Air 10/16/24 11:10 Reviewed MDM - URI/Sore Throat MDM Narrative Medical decision making narrative: Differential diagnosis considered: Rogers virus, strep pharyngitis, allergic rhinitis, upper respiratory tract infection, sinusitis, rhinosinusitis, nasopharyngitis. viral pharyngitis, otitis media, otitis externa, pneumonia, bronchitis, viral cough syndrome, viral syndrome, and influenza.? Exam findings show no acute concerns or changes; patient is non-toxic appearing and is in no distress.? Patient is appropriate for outpatient treatment and follow-up. Differential Diagnosis Differential diagnosis: Likely upper respiratory infection, otitis media, viral infection, influenza and other (COVID) Medical Records Attestation: I reviewed the patient's medical records. Lab Data Attestation: I reviewed the patient's lab results. Lab results narrative: strep screen negative, culture sent, Influenza A negative, Influenza B negative, COVID antigen negative Labs: Lab Results 10/16/24 10/16/24 Range/Units 11:31 11:32 POC Influenza A Ag Negative (Negative) POC Influenza B Ag Negative (Negative) POC SARS CoV-2 Ag Negative (Negative) POC Grp A Strep Screen Negative (Negative) Critical Care Time Critical Care Time Critical Care Time: No Discharge Plan Discharge Clinical Impression: Acute left otitis media Patient Disposition: Home, Self-Care Condition: Stable Instructions: Antibiotic Form, Ear Infection (GEN) Additional Instructions: Increase fluids especially juices and water [id number] cough and cold medicine of your choice for your symptoms Zyrtec or Claritin daily may include Coricidin brand decongestant heat to the face 20-30 minutes 4-6 times a day for pain Salt water gargles, throat lozenges or throat sprays as desired Antibiotic as directed--finished the medication Tylenol or ibuprofen for any fever pain If your symptoms persist, change or worsen significantly before you can contact your personal physician then please, without delay, go to the emergency department for further evaluation. Follow-up with PCP in 7-10 days or sooner if needed Advised to retest tomorrow for COVID since symptoms just started during night Prescriptions: New azithromycin 250 mg tablet See Rx Instructions .ROUTE .COMPLEX Qty: 6 0RF Rx Instructions: For 250 mg dose pack: take 500 mg today (day 1), then 250 mg for 4 days (days 2-5) (DME) BinaxNOW COVID-19 Ag Self Test Kit See Rx Instructions .Route Qty: 2 0RF Rx Instructions: As directed No Action atorvastatin 40 mg tablet 40 mg DIRECTED metformin 1,000 mg tablet 1,000 mg PO BID levothyroxine 125 mcg tablet 125 mcg PO DAILY metoprolol succinate 50 mg tablet extended release 24 hr 50 mg PO DAILY ergocalciferol (vitamin D2) 1,250 mcg (50,000 unit) capsule See Rx Instructions .ROUTE .COMPLEX Rx Instructions: as prescribed ezetimibe 10 mg tablet 10 mg PO DAILY insulin glargine [Lantus Solostar U-100 Insulin] 100 unit/mL (3 mL) insulin pen See Rx Instructions .ROUTE .COMPLEX Rx Instructions: as prescribed gabapentin 300 mg capsule 300 mg PO DAILY aspirin 81 mg Capsule 81 mg PO DAILY famotidine 20 mg tablet 20 mg PO DAILY albuterol sulfate 90 mcg/actuation HFA aerosol inhaler 2 inh inhalation QID PRN (Reason: shortness of breath or wheezing) Qty: 8.5 0RF Follow-up/Referrals: Helio,Oswald Stein MD [Primary Care Provider] - Time of Disposition: 11:38 Quality [place] Coma Scale Eyes: Open Verbal: Oriented and Alert Motor: Follows Commands [place] Coma Total Score: 15
[2024-10-16 11:33] LABS: EDINFLUASCREEN Negative (Negative); EDINFLUBSCREEN Negative (Negative)
[2024-10-16 11:34] LABS: EDCOVIDSCREEN Negative (Negative); EDSTREPNEGPOS1 Negative (Negative)
== END 2024-10-16 11:42 | disposition home or self-care (01) ==
PROVIDERS: Emergency Provider Registered Nurse; PCP Family Medicine
DX: H66.92 Otitis media, unspecified, left ear (principal); Z20.822 Contact with and (suspected) exposure to COVID-19; E11.9 Type 2 diabetes mellitus without complications; Z79.84 Long term (current) use of oral hypoglycemic drugs; Z79.4 Long term (current) use of insulin; I10 Essential (primary) hypertension; E78.00 Pure hypercholesterolemia, unspecified; I25.2 Old myocardial infarction; E89.0 Postprocedural hypothyroidism; Z79.82 Long term (current) use of aspirin
CPT/HCPCS: 87081; 87426; 87804; 87880; 99213; G0463

== ENCOUNTER 2025-09-04 11:01 | Emergency (ER) | payer OTHER, SELFPAY ==
--- NOTE | 2025-09-04 11:05 | ED.SKABFB ---
HPI - Skin/Abscess/Foreign Bdy General Chief complaint: Skin/Abscess/Foreign Body Stated complaint: Skin Sore Time Seen by Provider: 09/04/25 11:13 Source: patient and RN notes reviewed Mode of arrival: ambulatory Limitations: dementia History of Present Illness HPI narrative: 55-year-old female presents with concern for red tender area on her breast. She reports this started 3 days ago and she noticed a red streak yesterday. She reports she has a history of infections on her skin. She denies any drainage. She denies fever, malaise, chills, sweats. MD complaint: other (Redness) Related Data Home Medications ?Medication ?Instructions ?Recorded ?Confirmed ?Last Taken ?Type atorvastatin 40 mg tablet 40 mg DIRECTED 07/26/22 10/16/24 Unknown History levothyroxine 125 mcg tablet 125 mcg PO DAILY 07/26/22 10/16/24 Unknown History metformin 1,000 mg tablet 1,000 mg PO BID 07/26/22 10/16/24 Unknown History metoprolol succinate 50 mg 50 mg PO DAILY 07/26/22 10/16/24 Unknown History tablet,extended release 24 hr aspirin 81 mg capsule 81 mg PO DAILY 03/08/23 10/16/24 Unknown History famotidine 20 mg tablet 20 mg PO DAILY 03/17/23 10/16/24 Unknown History ergocalciferol (vitamin D2) 1,250 See Rx Instructions .Route .COMPLEX 11/26/23 10/16/24 Unknown History mcg (50,000 unit) capsule ezetimibe 10 mg tablet 10 mg PO DAILY 11/26/23 10/16/24 Unknown History insulin glargine 100 unit/mL (3 See Rx Instructions .Route .COMPLEX 11/26/23 10/16/24 Unknown History mL) subcutaneous pen (Lantus Solostar U-100 Insulin) gabapentin 300 mg capsule 300 mg PO DAILY 02/20/24 10/16/24 Unknown History atorvastatin 80 mg tablet mg 09/04/25 Unknown History cyclobenzaprine 10 mg tablet mg 09/04/25 Unknown History empagliflozin 25 mg tablet mg 09/04/25 Unknown History (Jardiance) fluconazole 150 mg tablet mg 09/04/25 Unknown History meloxicam 15 mg tablet mg 09/04/25 Unknown History tizanidine 2 mg tablet mg 09/04/25 Unknown History Allergies Allergy/AdvReac Type Severity Reaction Status Date / Time naproxen Allergy Rash Verified 09/04/25 11:06 Penicillins Allergy Swelling Verified 09/04/25 11:06 of Lip/Tongue/Throat Review of Systems Review of Systems: CONSTITUTIONAL: Denies malaise, chills, sweats, or fever. EYES: Denies redness, or discharge. ENT: Denies swollen lips, swollen tongue CARDIOVASCULAR: Denies chest pain, palpitations, or edema. RESPIRATORY: Denies cough or dyspnea. GASTROINTESTINAL: Denies abdominal pain, nausea, vomiting SKIN: Reports redness, swelling tenderness to the right breast. Denies purulent drainage, vesicles, bullae, numbness, pain beyond proportion MUSCULOSKELETAL: Denies joint pain or myalgia. NEUROLOGIC: Denies headache. All systems reviewed & are unremarkable except as noted in HPI and below PMFSH Past Medical History Medical History Aortic aneurysm Diabetes Elevated cholesterol Hypertension Myocardial infarction Surgical History Surgical History H/O thyroidectomy History of cholecystectomy History of tonsillectomy Social History Social History Smoking status: Never smoker Alcohol intake: current Alcohol use details: rare social Substance use type: does not use Living arrangements: with family Gender identity (if verbalized by the patient): Female Comments At time of signature, agree with nursing past medical, surgical, social and family history. There is no relevant family history pertinent to the presenting complaint Exam Narrative: GENERAL: Well-appearing, well-nourished, and in no acute distress. HEAD: Normocephalic, atraumatic. EYES: PERRLA, conjunctivae clear ENT: Mucous membranes moist. NECK: Supple. No lymphadenopathy CHEST: Clear to auscultation. No respiratory distress. HEART: Regular rate and rhythm. SKIN: Warm, dry. 4 cm diameter area of erythema, warmth with mild induration and central scab without fluctuation noted to the left breast, slight red streaking approximately 4 cm long noted. No drainage noted. No vesicles, bullae, necrosis, ecchymosis, crepitus noted. NEURO: Alert and oriented x3. PSYCH: Normal mood and affect Course Course Emergency Course: Patient is aware of diagnosis, understands and agrees to treatment plan. Anticipatory guidance given. Patient agrees to follow-up as directed and is aware of reasons to seek care at the emergency department. Portions of this record may have been created with voice recognition software Level of Care: Express Care Visit Vital Signs Vital signs: Reviewed. MDM - Skin/Abscess/Foreign Bdy MDM Narrative Medical decision making narrative: I evaluated this in the express care. History is obtained from patient who is an independent historian and physical exam was performed.? Available medical records were reviewed. ? Exam findings and relevant testing show no acute concerns or changes; patient is non-toxic appearing and is in no distress. Does not appear at this time to be erythema multiforme, bullous, SJS, TEN; no evidence at this time to suggest RMSF, NSTI, endocarditis or Lyme disease; patient looks well, nontoxic and is tolerating oral intake; no neurologic signs or symptoms; no headache, photophobia or neck pain; afebrile.? Patient does not have history of of penetrating trauma, laceration, blunt trauma, recent surgery, immunosuppression, malignancy, obesity, alcoholism, corticosteroid use.? Discussed the importance of follow-up, patient agrees; question, cellulitis versus necrotizing soft tissue infection versus abscess.?? Patient is appropriate for outpatient treatment and follow-up. Critical Care Time Critical Care Time Critical Care Time: No Discharge Plan Discharge Clinical Impression: Cellulitis Patient Disposition: Home Condition: Stable Instructions: Antibiotic Form, Cellulitis (ED) Additional Instructions: Please follow up with your Primary Care Doctor within 48-72 hours - call for an appointment. Rest and elevate affected area; apply moist heat 3-4 times daily for 10-15 minutes. Take Motrin 600mg every 8 hours with food for pain. Please take Antibiotics as directed. If you experience any worsening redness, swelling, streaking (red lines), fever or chills please go to the ER Patient Language: Mohawk Prescriptions: New sulfamethoxazole-trimethoprim 800-160 mg tablet 2 tablet PO Q12H 7 Days Qty: 28 0RF No Action atorvastatin 40 mg tablet 40 mg DIRECTED metformin 1,000 mg tablet 1,000 mg PO BID levothyroxine 125 mcg tablet 125 mcg PO DAILY metoprolol succinate 50 mg tablet extended release 24 hr 50 mg PO DAILY ergocalciferol (vitamin D2) 1,250 mcg (50,000 unit) capsule See Rx Instructions .ROUTE .COMPLEX Rx Instructions: as prescribed ezetimibe 10 mg tablet 10 mg PO DAILY insulin glargine [Lantus Solostar U-100 Insulin] 100 unit/mL (3 mL) insulin pen See Rx Instructions .ROUTE .COMPLEX Rx Instructions: as prescribed gabapentin 300 mg capsule 300 mg PO DAILY cyclobenzaprine 10 mg tablet atorvastatin 80 mg tablet tizanidine 2 mg tablet fluconazole 150 mg tablet meloxicam 15 mg tablet Jardiance 25 mg tablet aspirin 81 mg Capsule 81 mg PO DAILY famotidine 20 mg tablet 20 mg PO DAILY albuterol sulfate 90 mcg/actuation HFA aerosol inhaler 2 inh inhalation QID PRN (Reason: shortness of breath or wheezing) Qty: 8.5 0RF Follow-up/Referrals: Helio,Oswald Stein MD [Primary Care Provider] Time of Disposition: 11:20
[2025-09-04 11:09] VITALS: BP 105/75; PULSE 72; RESP 18; TEMP 36.4; O2SAT 97
--- OUTSIDE RECORDS SUMMARY | 2025-09-04 13:01 | XMS_ITS | Clinical Summary ---
Author Organization [facility] Address [address] [place] [address] Care Team Providers Care Attraction Worker Name Role Phone Tanvir Walton SATELLITE DISH REPAIRER-BRIM SHAPER Primary Care Provider [phone] Source Comments [facility],non-owned Affiliates and Associated Physician Practices is amultiple site organization consisting of ambulatory clinics and hospital sitesin [place], [place], [place] and [place]. This disclosure is being madepursuant to the Care Everywhere program and may not contain all information available regarding this patient. Last updated 18.[facility] [place] Encounters Date Type Department Care Team Description 08/05/2025 Telephone [facility] [address] [place] [address] Landry Boykin, RN Appointment from Last 3 Months Social History Tobacco Use Types Packs/Day Years Used Date Smoking Tobacco: Never Assessed Comments Unknown Sex and Gender Information Value Date Recorded Sex Assigned at Not on file Legal Sex Female 6:22 AM FOIL WRAPPER Gender Identity Not on file Sexual Orientation Not on file Last Filed Vital Signs Vital Sign Reading Time Taken Comments Blood Pressure 112/82 12/07/2015 10:25 AM FOIL WRAPPER Pulse 88 12/07/2015 10:25 AM FOIL WRAPPER Temperature 36.8 C (98.3 F) 12/07/2015 10:25 AM FOIL WRAPPER Respiratory Rate 20 12/07/2015 10:25 AM FOIL WRAPPER Oxygen Saturation - - Inhaled Oxygen Concentration - - Weight 136.1 kg (300 lb) 12/07/2015 10:25 AM FOIL WRAPPER Height 165.1 cm (5' 5) 12/07/2015 10:25 AM FOIL WRAPPER Body Mass Index 49.92 12/07/2015 10:25 AM FOIL WRAPPER Plan of Treatment Upcoming Encounters Date Type Department Care Team (Late st Contact Info) Description 11/06/2025 12:30 PM FOIL WRAPPER Appointment [facility] [place] [address] Health Maintenance Due Date Last Done Comments COLOGUARD (AGES 45-75) - COL ON CA SCREENING 1969 COLON MONITORING 1969 COLONOSCOPY - COLON CA SCREENING 1969 CT COLONOGRAPHY - COLON CA SCREENING 1969 Colorectal Cancer Screening 1969 FIT - COLON CA SCREENING 1969 FLEX SIG - COLON CA SCREENING 1969 LIPID TESTING 1969 HIV SCREENING 02/10/1984 DTAP/TDAP/TD VACCINES (1 - Tdap) 02/10/1988 HEPATITIS B VACCINE (1 of 3 - 19+ 3-dose series) 02/10/1988 PAP SMEAR 1990 PNEUMOCOCCAL VACCINE 50+ (1 of 1 - PCV) 2019 ZOSTER VACCINE (1 of 2) 2019 DEPRESSION SCREENING 11/20/2024 COVID-19 VACCINE (1 - 2023-2 5 season) 2025 INFLUENZA VACCINE (#1) 2025 MAMMOGRAM 04/29/2026 04/29/2024, 04/29/2024, 07/22/2021 HEPATITIS C SCREENING Completed 12/07/2015 HIB VACCINE Aged Out No longer eligi ble based on patient's age to complete this topic HPV VACCINE Aged Out No longer eligi ble based on patient's age to complete this topic MENINGOCOCCAL (Group B) VACCINE SHARED DECISION-MAKING Aged Out No longer eligible based on patient's age to complete this topic MENINGOCOCCAL GROUPS A/C/Y/W VACCINE Aged Out No longer eligible b ased on patient's age to complete this topic Procedures Procedure Name Priority Date/Time Associated Diagnosis Comments HEPATITIS C ANTIBODY Routine 12/07/2015 2:04 PM FOIL WRAPPER from Last 3 Months or Most Recently Relevant to Health Maintenance Results * HEPATITIS C ANTIBODY (12/07/2015 2:04 PM FOIL WRAPPER) Hepatitis C Antibody [facility]react [facility] Comment: Hepatitis C Antibody screen indicates no serologic evidence of past or current infection with Hepatitis C Virus. Patients with unexplained liver disease who are immunocompromised or suspected of having acute Hepatitis C infection may benefit from Nucleic Acid Test (NAHID) for Hepatitis C Viral RNA to confirm Hepatitis C status. Blood specimen (specimen) BLOOD SPECIMEN / Unknown 12/07/2015 2:04 PM FOIL WRAPPER 12/07/2015 3:01 PM FOIL WRAPPER Sheree Johnson MD LAB - CHEMISTRY DOMIN[facility] Final Result [address] [phone] from Last 3 Months or Most Recently Relevant to Health Maintenance Insurance [facility] Care Teams Attraction Worker Relationship Specialty Start Date End Date Tanvir Walton, SATELLITE DISH REPAIRER-BRIM SHAPER PCP - General 06/11/18
--- OUTSIDE RECORDS SUMMARY | 2025-09-04 13:01 | XMS_ITS | Clinical Summary ---
Author Organization [facility] Address [address] [place] [address] Phone Care Team Providers Care Electric Organ Assembler And Checker Name Role Phone Tanvir Walton APRN, COMPLIANCE MGR Primary Care Provider + Allergies Active Allergy Reactions Criticality Noted Date Comments Naproxen Hives 11/29/2015 Penicillins Anaphylaxis 11/29/2015 Medications Aspirin 81 MG Tablet Take 81 mg by mouth daily. Active metFORMIN (GLUCOPHAGE) 500 MG Tablet Take 500 mg by mouth 2 times daily (with meals). Active omeprazole (PRILOSEC) 40 MG CAPSULE DELAYED RELEASE Take 1 Cap by mouth daily. 30 Cap 8 Active Additional Information Patient not taking.Reported on 11/22/2020 diphenhydrAMINE (BENADRYL) 12.5 MG/5ML Elixir Take 5 mL by mouth 4 times daily. Swish and swallow 200 mL 8 Active Additional Information Patient not taking.Reported on 05/08/2019 ondansetron (ZOFRAN-ODT) 4 MG TABLET DISPERSIBLE Take 1 Tab by mouth every 6 hours as needed for Nausea - 1st line. 10 Tab 9 Active Additional Information Patient not taking.Reported on 06/14/2019 polyethylene glycol (GLYCOLAX, MIRALAX) Pack Take 1 Packet by mouth daily as needed for Constipation. Dissolve in 4-8 oz of liquid. 90 Packet 9 Active Additional Information Patient not taking.Reported on 11/22/2020 levothyroxine (SYNTHROID) 125 MCG Tablet Take 1 Tab by mouth every morning (before breakfast). 90 Tab 9 Active FAMOTIDINE PO Take by mouth. A ctive ondansetron (ZOFRAN) 4 MG Tablet Take 1 Tab by mouth every 6 hours as needed for Nausea - 1st line. 12 Tab 9 Active Additional Information Patient not taking.Reported on 11/22/2020 Butalbital-APAP- Caffeine (FIORICET) 50-300-40 MG Capsule Take 1 Cap by mouth every 4 hours as needed (headache). 10 Cap 9 Active Additional Information Patient not taking.Reported on 11/22/2020 traMADol (ULTRAM) 50 MG Tablet Take 1 Tab by mouth every 6 hours as needed for Moderate or more severe pain or Severe pain. 20 Tab 9 Active Additional Information Patient not taking.Reported on 11/22/2020 methylPREDNISolo ne (MEDROL DOSPACK) 4 MG Tablet Therapy Pack See product package insert for dosing schedule 21 Tab 0 Active Additional Information Patient not taking.Reported on 11/22/2020 albuterol 108 (90 Base) MCG/ACT Aerosol Solution take 2 Puffs by inhalation every 6 hours as needed for Wheezing or Cough. 1 Inhaler 0 Active Additional Information Patient not taking.Reported on 11/22/2020 loratadine (CLARITIN) 10 MG Tablet Take 1 Tab by mouth daily. 30 Tab 0 Active Additional Information Patient not taking.Reported on 11/22/2020 NAPROXEN PO Take by mouth. Act david ondansetron (ZOFRAN-ODT) 4 MG TABLET DISPERSIBLE Take 1 Tab by mouth every 8 hours as needed for Nausea - 1st line. 15 Tab 0 Active Additional Information Patient not taking.Reported on 11/22/2020 dicyclomine (BENTYL) 20 MG Tablet Take 1 Tab by mouth every 6 hours. 30 Tab 0 Active Additional Information Patient not taking.Reported on 11/22/2020 ketorolac (TORADOL) 10 MG Tablet Take 1 Tab by mouth every 6 hours as needed for Moderate or more severe pain. 20 Tab 01/03/202 1 Active Active Problems Problem Noted Date Diagnosed Date Diverticulitis 04/29/2019 Hypothyroid 04/27/2019 UTI (urinary tract infection) 04/27/2019 Morbid obesity 04/27/2019 Type 2 diabetes mellitus treated without insulin 04/27/2019 Family History Medical History Relation Name Comments Diabetes Father Heart Attack Father Hypertension Father High Cholesterol Mother Colon Cancer Paternal Grandfather Relation Name Status Comments Father Mother Alive Paternal Grandfather Social History Tobacco Use Types Packs/Day Years Used Date Smoking Tobacco: Never Smokeless Tobacco: Never Alcohol Use Standard Drinks/Week Comments Not Currently 0 (1 standard drink = 0.6 oz pure alcohol) in last 4 days to relieve night pain Comments No Sex and Gender Information Value Date Recorded Sex Assigned at Not on file Legal Sex Female 9:28 PM CDT Gender Identity Not on file Sexual Orientation Not on file Occupation Industry Job Start Date Job End Date disabled Not on file Not on file Not on file Last Filed Vital Signs Vital Sign Reading Time Taken Comments Blood Pressure 123/73 11/22/2020 1:00 PM LINUX ENGINEER Pulse 79 11/22/2020 1:00 PM LINUX ENGINEER Temperature 37.1 C (98.8 F) 11/22/2020 11:23 AM LINUX ENGINEER Respiratory Rate 23 11/22/2020 12:45 PM LINUX ENGINEER Oxygen Saturation 95% 11/22/2020 1:00 PM LINUX ENGINEER Inhaled Oxygen Concentration - - Weight 113.4 kg (250 lb) 11/22/2020 11:21 AM LINUX ENGINEER Height 162.6 cm (5' 4) 11/22/2020 11:21 AM LINUX ENGINEER Body Mass Index 42.91 11/22/2020 11:21 AM LINUX ENGINEER Plan of Treatment Health Maintenance Due Date Last Done Comments Diabetes: Eye Exam 1969 Diabetes: Foot Exam 1969 Hepatitis C Virus (HCV) Screening 1969 Mammogram 1969 TdaP Immunization 1969 Hepatitis B Immunization (1 of 3 - 19+ 3-dose series) 02/10/1988 Pneumococcal Immunization (50+ years) (1 of 2 - PCV) 02/10/1988 Pap Smear 1990 Cervical Cancer Screening (CCS) 1999 HPV/Cotest 1999 Cologuard 2014 Colonoscopy 2014 Colorectal Cancer Screening 2014 Immunochemical Fecal Occult Blood 2014 Zoster Immunization (1 of 2) 2019 Diabetes: Hemoglobin A1c 10/28/2019 04/28/2019 Diabetes: Nephropathy Screening 11/22/2021 11/22/2020, 10/01/2020, 10/02/2019, Additional history exists Influenza Immunization (#1) 2025 SARS-COV-2 Immunization ( season) 2025 Respiratory Syncytial Virus (RSV) Immunization (Adult) (1 - 1-dose 75+ series) 02/10/2044 Human Papillomavirus (HPV) Immunization Aged Out No longer eligible based on patient's age to complete this topic Meningococcal Immunization (ACWY) Aged Out No longer eligible based on patient's age to complete this topic Rotavirus Immunization Aged Out No lo nger eligible based on patient's age to complete this topic Procedures Procedure Name Priority Date/Time Associated Diagnosis Comments CMP (COMPREHENSIVE METABOLIC PANEL) STAT 11/22/2020 11:18 AM LINUX ENGINEER HEMOGLOBIN A1C W/ ESTIMATED GLUCOSE Routine 04/28/2019 5:09 AM CDT from Last 3 Months or Most Recently Relevant to Health Maintenance Results * (ABNORMAL) CMP (Comprehensive Metabolic Panel) (11/22/2020 11:18 AM LINUX ENGINEER) SODIUM 130(L) 136 - 144 mmol/L 11/22/2020 12:11 PM LINUX ENGINEER [facility] POTASSIUM 4.0 3.5 - 5.1 mmol/L 11/22/2020 12:11 PM LINUX ENGINEER [facility] CHLORIDE 96(L) 100 - 110 mmol/L 11/22/2020 12:11 PM LINUX ENGINEER [facility] CO2, VENOUS 26 22 - 32 mmol/L 11/22/2020 12:11 PM LINUX ENGINEER [facility] ANION GAP 12.0 8.0 - 20.0 mmol/L 11/22/2020 12:11 PM LINUX ENGINEER [facility] GLUCOSE 140(H) 70 - 99 mg/dL 11/22/2020 12:11 PM LINUX ENGINEER [facility] BUN 9 6 - 20 mg/dL 11/22/2020 12:11 PM [facility] CREATININE, BLOOD 0.60 0.60 - 1.10 mg/dL 11/22/2020 12:11 PM [facility] BUN/CREATININE RATIO 15 12 - 20 ratio 11/22/2020 12:11 PM [facility] TOTAL PROTEIN 7.6 6.0 - 8.3 g/dL 11/22/2020 12:11 PM [facility] ALBUMIN 4.0 3.5 - 5.2 g/dL 11/22/2020 12:11 PM [facility] Comment: The colormetric methods used for the determination of Albumin may lead to falsely elevated test results in patients suffering from renal failure or insufficiency due to interference with other proteins. A/G RATIO 1.1 1.0 - 2.0 11/22/2020 12:11 PM [facility] CALCIUM 10.3 8.9 - 10.3 mg/dL 11/22/2020 12:11 PM [facility] T BILI 0.3 <=1.2 mg/dL 11/22/2020 12:11 PM [facility] SGOT (AST) 23 <=32 U/L 11/22/2020 12:11 PM [facility] SGPT (ALT) 24 <=41 U/L 11/22/2020 12:11 PM [facility] ALKALINE PHOSPHATASE 134(H) 35 - 105 U/L 11/22/2020 12:11 PM [facility] GFR, EST. NONAFRICAN >60 >=60 11/22/2020 12:11 PM [facility] GFR, EST. >60 >=60 021 12:11 PM [facility] Comment: Creatinine Clearance is the preferred criteria for selecting drug dose adjustments in renally impaired patients. The GFR is provided as additional pertinent clinical information. GFR is reported in mL/min/1.73 sq m. Blood Venous Catheter (IV) / Unknown 11/22/2020 11:18 AM LINUX ENGINEER 11/22/2020 11:32 AM LINUX ENGINEER us Karlo Glez MD CHEMISTRY ORDERABLES Final Result Performing Organization Address City/[facility]/ZIP Co de Phone Number [facility] [address] [place] [address] * (ABNORMAL) Hemoglobin A1C w/ Estimated Glucose (04/28/2019 5:09 AM CDT) HGB-A1C 6.1(H) 4.0 - 6.0 % 04/28/2019 7:20 AM CDT [facility] Est Average Glucose 128.4 mg/dL 04/28/2019 7:20 AM CDT [facility] Blood specimen (specimen) Venipuncture / Unknown 04/28/2019 5:09 AM CDT 04/28/2019 5:[address] [facility] - 04/28/2019 7:20 AM CDT HEMOGLOBIN A1C: DIABETIC PATIENTS: WELL-CONTROLLED: 6.2 - 7.0 INTERMEDIATE WELL-CONTROLLED: 7.0 - 9.0 POORLY-CONTROLLED: >9.0 us Brent Block APRN, CNP CHEMISTRY ORDERABL ES Final Result Performing Organization Address [facility] Co de Phone Number [facility] [address] [place] [address] from Last 3 Months or Most Recently Relevant to Health Maintenance Insurance MEDICAID [facility] Advance Directives * Full Code (Latest Code Status on File) Date Activated Date Inactivated Comments 04/28/2019 1:35 AM 04/29/2019 4:04 PM CPR-Full Eze tment: FULL ARREST: Attempt Resuscitation/CPR wit intubation and mechanical ventilation. PRE-ARREST: Use entire range of life support measures to stabilize the patient. Care Teams Electric Organ Assembler And Checker Relationship Specialty Start Date End Date Tanvir Walton, ANN MARIE, KAREN [address] [place] [address] PCP - General Internal Medicine 11/29/15
--- OUTSIDE RECORDS SUMMARY | 2025-09-04 13:02 | XMS_ITS | Clinical Summary ---
Author Organization [facility] [address] Address [address] [place] [address] Care Team Providers [employer] Porter Name Role Phone Oswald Cadet MD Primary Care Provider [phone] Oswald Cadet MD Unavailable [phone] Allergies Active Allergy Reactions Criticality Noted Date Comments Metformin Diarrhea,Stomach upset Low 06/22/2023 Naproxen Swelling Medium Penicillins Swelling Medium Dulaglutide Nausea & Vomiting Low 09/11/2023 Venom-Honey Bee Swelling Medium 11/24/2020 Medications albuterol HFA (PROVENTIL HFA,VENTOLIN HFA,PROAIR HFA) 90 mcg/actuation inhaler Inhale 2 puffs every 6 (six) hours as needed for wheezing Active famotidine (PEPCID) 20 mg tablet Take 1 tablet (20 mg total) by mouth 2 (two) times a day 180 tablet 3 03/21/20 23 Active ergocalciferol (VITAMIN D) 50,000 unit capsule 06/12/20 23 Active Zetia 10 mg tablet Take by mouth 06/12/20 23 Active OneTouch Delica Plus Lancet 33 gauge misc 05/05/20 23 Active metoprolol XL (TOPROL-XL) 50 mg extended release tablet TAKE 1 TABLET BY MOUTH EVERY DAY 30 tablet 2 12/05/19 24 Active aspirin 81 mg enteric coated tablet TAKE 1 TABLET (81 MG TOTAL) BY MOUTH DAILY 30 tablet 11 11/14/20 24 Active cetirizine (ZyrTEC) 10 mg tablet TAKE 1 TABLET BY MOUTH EVERY DAY 30 tablet 11 11/14/20 24 Active sertraline (ZOLOFT) 25 mg tablet Take 1 tablet (25 mg total) by mouth daily 11/25/19 25 Active empagliflozin (JARDIANCE) 25 mg tabletIndicati ons:type 2 diabetes mellitus Take 1 tablet (25 mg total) by mouth daily E11.65 90 tablet 4 12/12/19 25 Active OneTouch Ultra Test strip USE TO TEST BLOOD SUGAR TWICE DAILY 200 strip 3 01/09/20 25 Active gabapentin (NEURONTIN) 300 mg capsuleIndicat ions:Diabetic Peripheral Neuropathy TAKE 1 CAPSULE (300 MG TOTAL) BY MOUTH NIGHTLY 90 capsule 4 02/06/20 25 Active levothyroxine (SYNTHROID) 125 mcg tablet TAKE 1 TABLET EVERY DAY BY ORAL ROUTE FOR 90 DAYS. 90 tablet 4 02/06/20 25 Active SUMAtriptan (IMITREX) 25 mg tablet Take 1 tablet every day by oral route as needed. Active atorvastatin (LIPITOR) 80 mg tablet Take 1 tablet (80 mg total) by mouth nightly 90 tablet 4 04/04/20 25 Active TRUEplus Pen Needle 32 gauge x 5/32 needle USE TO INJECT INSULIN ONCE DAILY. E11.65 100 each 2 04/30/20 25 Active insulin glargine (LANTUS) 100 unit/mL (3 mL) pen for injection INJECT 46 UNITS UNDER THE SKIN NIGHTLY 45 mL 3 05/07/20 25 Active fluconazole (DIFLUCAN) 150 mg tablet 07/08/20 25 Active tiZANidine (ZANAFLEX) 2 mg tablet 08/05/20 25 Active Premarin vaginal cream INSERT 1/2 APPLICATORFUL VAGINALLY DAILY FOR 30 DAYS 05/19/20 25 Active acetaminophen- codeine (TYLENOL with CODEINE #3) 300-30 mg per tablet TAKE 1 TABLET BY MOUTH TWICE A DAY NEEDED FOR 7 DAYS 025 Discontin ued(Thera py completed ) cyclobenzaprin e (FLEXERIL) 10 mg tablet 02/22/20 25 025 Discontin ued(Thera py completed ) Active Problems Problem Noted Date Diagnosed Date Severe obesity 12/12/2024 Body mass index (BMI) 45.0-49.9, adult Diabetic peripheral neuropat hy associated with type 2 diabetes mellitus 01/22/2024 Assessment & Plan (12/12/2024 3:30 PM PANEL SAW OPERATOR): This is chronic condition. Stable on current dose of gabapentin Continue to follow with Dr. marinelli for Podiatry Continue same dose of gabapentin Assessment & Plan (01/22/2024 10:39 AM PANEL SAW OPERATOR): Peripheral neuropathy continues Start gabapentin 300 mg nightly Follows with Dr. Marinelli Has diabetic shoes coming Type 2 diabetes mellitus wit hout complication, with long-term current use of insulin 06/22/2023 Assessment & Plan (12/12/2024 3:30 PM PANEL SAW OPERATOR): This is a chronic condition which is worsening, elevated, not at goal . Goal is less than 7%. Due to lack of insulin. States she can not get her insulin from the pharmacy. Personally reviewed most recent A1c - Lab Results Component Value Date HGBA1C 9.1 12/12/2024 Personally reviewed POC blood sugar- elevated, not at goal of 80-180 Lab Results Component Value Date POCGLU 237 12/12/2024 Medication- continue Lantus 46 units daily, add Jardiance 25 mg daily Monitor blood sugar daily, record results. Encouraged annual eye exam. Monofilament foot exam completed. Protective senses -intact Continue - Gabapentin. Stable on current dose of gabapentin. Sees Dr. Marinelli for Podiatry. eGFR- greater than 90. Kidney function-normal Urine microalbumin/creatinine ratio - at goal. Goal is <30 Continue atorvastatin, Zetia Assessment & Plan (01/22/2024 10:35 AM PANEL SAW OPERATOR): This is a chronic condition which is inadequately controlled, improving not at goal of less than 7%. Personally reviewed most recent A1c - Lab Results Component Value Date HGBA1C 8.4 01/22/2024 Personally reviewed POC blood sugar- not at goal 80-180 Lab Results Component Value Date POCGLU 222 01/22/2024 Medication- increase Lantus 46 units nightly. Did not tolerate metformin due to upset stomach and diarrhea, states allergy to trulicity. Monitor blood sugar 2 times a day. Encouraged annual eye exam. Monofilament foot exam completed. protective senses intact Treated with Gabapentin 300mg po nightly Personally reviewed CMP eGFR- 103 Kidney function- normal Urine microalbumin/creatinine ratio - at goal <30 not treated with PETER/ARB, treated with metoprolol B/P today- at goal of <140/90. continue metoprolol Personally reviewed lipid panel. at Goal of less than 70. Continue atorvastatin, Zetia Assessment & Plan (10/16/2023 9:10 AM PANEL SAW OPERATOR): This is a chronic condition which is inadequately controlled but improving -not at goal of less than 7%. Personally reviewed most recent A1c - Lab Results Component Value Date HGBA1C 9.2 10/16/2023 Personally reviewed POC blood sugar- not at goal 80-180 Lab Results Component Value Date POCGLU 187 10/16/2023 Medication- increase Lantus 42 units nightly. Did not tolerate metformin due to upset stomach and diarrhea, states allergy to trulicity. Monitor blood sugar 2 times a day. Will not use cgm as she is afraid of needles. Encouraged annual eye exam. Monofilament foot exam completed. protective senses intact Personally reviewed CMP eGFR- 103 Kidney function- normal Urine microalbumin/creatinine ratio - at goal <30 not treated with PETER/ARB, treated with metoprolol B/P today- at goal of <140/90. continue metoprolol. Personally reviewed lipid panel. at Goal of less than 70. Continue atorvastatin, zetia Assessment & Plan (09/01/2023 2:17 PM CDT): This is a chronic condition which is out of control improving worsening not at goal of less than 7%. She was referred to diabetes education at our last office visit, however she has not attended Encouraged her strongly to follow up with dietitian and focus on healthy eating Personally reviewed most recent A1c - Lab Results Component Value Date HGBA1C 10.9 06/22/2023 Personally reviewed POC blood sugar- not at goal 80-180 Lab Results Component Value Date POCGLU 288 09/01/2023 Medication- Continue Lantus 38 units daily. Start trulicity 0.75mg weekly, will increase as tolerated. Denies history of pancreatitis or thyroid cancer. Monitor blood sugar continuously with sensor. 2x/day blood sugars provided. Not wearing sensor but has it. Encouraged annual eye exam. Monofilament foot exam completed. protective senses intact Encouraged to follow up with podiatry as per last office visit. Personally reviewed CMP eGFR- 107 Kidney function- normal Urine microalbumin/creatinine ratio - at goal <30 not treated with PETER/ARB, treated with metoprolol B/P today- at goal of <140/90. continue metoprolol Personally reviewed lipid panel. at Goal of less than 70. Continue atorvastatin, Zetia Assessment & Plan (06/22/2023 4:47 PM CDT): This is a chronic condition which is out of control, not at goal of less than 7% with unintentional weight loss. Personally reviewed most recent A1c - Lab Results Component Value Date HGBA1C 10.9 06/22/2023 Personally reviewed POC blood sugar- not at goal 80-180 Lab Results Component Value Date POCGLU 359 06/22/2023 Medication- Continue Lantus 20 units nightly Encouraged to call blood sugars in 4 days Monitor blood sugar 2 times a day. Continuously with Dexcom 7 sensor. Encouraged annual eye exam. Monofilament foot exam completed. protective senses intact Personally reviewed CMP eGFR- 110 Kidney function- normal Urine microalbumin/creatinine ratio - needed/ordered. goal <30 not treated with PETER/ARB, treated with metoprolol B/P today- at goal of <140/90. Personally reviewed lipid panel. Ldl-37 at Goal of less than 70. Continue atorvastatin and Zetia Coronary artery disease invo lving [place] coronary artery of [place] heart without angina pectoris 01/10/2023 Other chest pain 03/26/2021 Atypical chest pain 12/02/2020 Assessment & Plan (12/02/2020 11:48 AM PANEL SAW OPERATOR): With atypical symptoms and normal stress testing no further cardiovascular workup planned. Primary hyperparathyroidism 11/25/2020 Assessment & Plan (12/31/2020 3:56 PM PANEL SAW OPERATOR): Elevated calcium level of 10.4 detected in September/2020 and November 2020 GFR 101 phosphorus 3.4 PTH 89 Patient is asymptomatic This could be 1ry hyperparathyroidism. Plan: Patient to avoid calcium or vitamin D supplements. We will monitor and confirm the abnormality with repeat labs in 6 weeks If labs confirm hyperparathyroidism then we will check urine for calcium and then bone density TIA (transient ischemic attack) 11/24/2020 Assessment & Plan (11/24/2020 11:11 AM PANEL SAW OPERATOR): Presented with c/o left facial twitching and drooping last night, that resolved almost instantly. Has also been having left arm numbness for the past few days, and c/o episodes of blurry vision for the past week. Suspect TIA. Will get MRI brain without contrast, US carotids. Continue telemetry monitoring. Will check a lipid panel. Hyperlipidemia associated with type 2 diabetes brittaney mccloud 11/24/2020 Assessment & Plan (12/12/2024 3:30 PM PANEL SAW OPERATOR): This is a chronic condition which is at goal . Goal is LDL less than 70 Continue atorvastatin Zetia Encouraged to eat healthy, include fresh fruits and vegetables daily and avoid eating fried foods more than once per week. Assessment & Plan (01/22/2024 10:37 AM PANEL SAW OPERATOR): This is a chronic condition which is at goal of LDL less than 70 Continue atorvastatin, Zetia Encouraged to eat healthy, include fresh fruits and vegetables daily and avoid eating fried foods more than once per week. Encouraged to take medications as prescribed. Assessment & Plan (11/24/2020 11:12 AM PANEL SAW OPERATOR): On Metformin at home. Will check an HbA1C. Low dose SSI while here. Monitor fingersticks and adjust insulin regimen as needed. Acquired hypothyroidism 11/24/2020 Assessment & Plan (01/22/2024 10:36 AM PANEL SAW OPERATOR): This is a chronic condition which is not at goal of TSH between 0.3 to 4.2 mclUnits/ml Personally reviewed lab. Continue Levothryoxine 125 mcg po daily in am Discussed the importance of taking Levothryoxine on a empty stomach, which means one hour before eating or two hours after eating. Discussed food in the stomach will interfere with absorption of Levothyroxine. Discussed Calcium, antacids and iron supplements will interfere with the absorption of Levothyroxine, encouraged to take these at a different time of the day. Repeat TSH, T4 today Assessment & Plan (12/31/2020 3:59 PM PANEL SAW OPERATOR): Total thyroidectomy for benign goiter in the . No thyromegaly detected. Patient is clinically euthyroid on Levothyroxine Plan: The pain in neck area is not related to thyroid Recommend referral to ENT Check TSh with next labs. Assessment & Plan (11/24/2020 11:13 AM PANEL SAW OPERATOR): Continue home Synthroid. Asthma 11/24/2020 Assessment & Plan (11/24/2020 11:14 AM PANEL SAW OPERATOR): Not wheezing at this time. Continue Albuterol prn. Hypercalcemia 11/24/2020 Assessment & Plan (11/24/2020 11:17 AM PANEL SAW OPERATOR): Calcium 11.0. Patient has no symptoms of hypercalcemia. Will check vit D, phosphate, parathyroid hormone levels. Will initiate some iv hydration and encourage patient to take at least 6-8 glasses water daily. Ascending aorta dilatation 11/24/2020 Assessment & Plan (12/02/2020 11:48 AM PANEL SAW OPERATOR): We will re-evaluate the dimension by echocardiography in 1 year. Assessment & Plan (11/24/2020 11:20 AM PANEL SAW OPERATOR): Echo reports dilated ascending aorta at 4.3 cm. No valvular abnormalities reported. No concerns for dissection at this time. Patient will need to have this followed up as outpatient. BP is adequately controlled. Class 3 severe obesity due t o excess calories with serious comorbidity and body mass index (BMI) of 40.0 to 44.9 in adult 11/24/2020 Assessment & Plan (12/12/2024 3:31 PM PANEL SAW OPERATOR): This is a chronic condition which continues 8 lbs. Weight gain since last office visit Does not tolerate GLP 1. Encouraged healthy eating which includes a low carb diet. Avoiding processed foods, sweets and fried foods. Encouraged 30 minutes of walking at least 5 days per week Discussed that exercise can be broken down into small sessions- for example 2- 15 minutes sessions or 3- 10 minutes sessions. Assessment & Plan (01/22/2024 10:37 AM PANEL SAW OPERATOR): This is a chronic condition which continues 4 lb weight gain since last office visit Encouraged healthy eating and exercise such as walking Assessment & Plan (10/16/2023 9:12 AM PANEL SAW OPERATOR): This is a chronic condition which has slightly improved 4lb weight loss since last office visit Did not tolerate trulicity Amb ref. To dietitian- have referred in the past but she has not attended yet. Assessment & Plan (09/01/2023 2:18 PM CDT): This is a chronic condition which continues 8 lb weight gain since last office visit Referred to dietitian but she has not attended. Encouraged her to follow up Will start Trulicity to promote further weight loss Encouraged to follow up in 3 weeks with condition report and we will titrate as tolerated Assessment & Plan (11/24/2020 11:20 AM PANEL SAW OPERATOR): Will consult dietitian. Essential hypertension Assessment & Plan (10/16/2023 9:12 AM PANEL SAW OPERATOR): This is a chronic condition which is at goal of less than 140/90 Personally reviewed labs. Continue metoprolol. Encouraged to monitor weight and B/P at home Encouraged to take medications as prescribed. Resolved Problems Problem Noted Date Diagnosed Date Resolved Date Chest pain 10/10/2021 08/22/2025 Assessment & Plan (12/12/2024 3:27 PM PANEL SAW OPERATOR): This is acute can condition which started 20 minutes ago Pain is a 5/10. Left-sided chest pain that radiates under the left breast Blood pressure stable, heart rate stable Follows with Dr. Dunbar for cardiology Ambulance called and transferred to [facility] for further evaluation Acute chest pain 11/24/2020 12/02/2020 Assessment & Plan (11/24/2020 11:09 AM PANEL SAW OPERATOR): Presented with typical chest pain. Has risk factors for ACS- obesity, age, family history. Troponin negative X 2, EKG with no acute ST/T wave changes. Echo showed no focal wall abnormalities. EF is 70%. Cardiology has been consulted, ordered a nuclear stress test. Continue Aspirin. Will check a lipid panel. Continue telemetry monitoring. Encounters Date Type Department Care Team Description 09/01/2025 Telephone Obstetrics and Gynecology Clinic [facility] 3rd Floor [address] [place] [address] Mariposa Negrete RN 08/26/2025 9:14 AM CDT - 08/26/2025 11:59 PM CDT Hospital Encounter [facility] [address] [place] [address] Low back pain, unspecified back pain laterality, unspecified chronicity, unspecified whether sciatica present Discharge Disposition: Discharge to home or self care 08/22/2025 Telephone [facility] at [address] [place] [id number] Radha Fontenot NP 08/21/2025 1:30 PM CDT Office Visit [facility] at [address] [place] [phone] Radha Fontenot, [employer] Type 2 diabetes mellitus without complication, with long-term current use of insulin (HCC) (Primary Dx); Acquired hypothyroidism; Essential hypertension; Hyperlipidemia associated with type 2 diabetes mellitus (HCC); Class 3 severe obesity due to excess calories with serious comorbidity and body mass index (BMI) of 40.0 to 44.9 in adult 08/18/2025 Telephone Obstetrics and Gynecology Clinic [address] [place] [address] 3rd Floor [address] [place] [address] Mariposa Negrete RN from Last 3 Months Surgical History Surgery Date Site/Laterality Comments CHOLECYSTECTOMY 11/20/1992 - 11/19/1993 THYROID SURGERY 11/20/1990 - 11/19/1991 TONSILLECTOMY at age 4 Medical History Medical History Date Comments Diabetes mellitus Thyroid disease Asthma Arthritis H/O gastroesophageal reflux (GERD) CHF (congestive heart failure) (HCC) Carotid artery disease Shortness of breath Chest pain 10/10/2021 Family History Medical History Relation Name Comments Heart attack Father Stroke Father Breast cancer Maternal Grandmother Hypertension Mother Diabetes Paternal Grandfather Thyroid cancer Paternal cousin Hypertension Sister Asthma Son Autism Son Ovarian cancer Neg Hx Relation Name Status Comments Father Maternal Grandmother Mother Paternal Grandfather Paternal cousin Sister Son Social History Tobacco Use Types Packs/Day Years Used Date Smoking Tobacco: Never Smokeless Tobacco: Never Tobacco Cessation:Counseling Given: Not Answered Alcohol Use Standard Drinks/Week Comments Not Currently 0 (1 standard drink = 0.6 oz pur e alcohol) AUDIT-C Answer Date Recorded Q1: How often do you have a drink containing alc ohol? Never 11/11/2024 Average Number of Drinks Not on file 024 Frequency of Binge Drinking Not on file 10/21 Overall Financial Resource Strain (CARDIA) Answe r Date Recorded How hard is it for you to pa y for the very basics like food, housing, medical care, and heating? Not very hard 10/11/2021 Hunger Vital Sign Answer Date Recorded Within the past 12 months, y ou worried that your food would run out before you got the money to buy more. Never true 10/11/20 21 Within the past 12 months, t he food you bought just didn't last and you didn't have money to get more. Never true 10/11/2021 PRAPARE - Transportation Answer Date Re corded In the past 12 months, has l ack of transportation kept you from medical appointments or from getting medications? No 09/21 In the past 12 months, has l ack of transportation kept you from meetings, work, or from getting things needed for daily living? No 10/11/2021 Personal Safety Answer Date Recorded Have you ever been in or are you currently in a harmful physical or emotional relationship or is someone making you feel afraid or unsafe? Denies 12/12/2024 Comments No Sex and Gender Information Value Date Recorded Sex Assigned at Not on file Legal Sex Female 12:32 AM PANEL SAW OPERATOR Gender Identity Not on file Sexual Orientation Not on file Obstetrics History Para Term AB IAB SAB Ectopic Multiple Livin g Live Births 6 6 6 Date Outcome GA Total Labor Labor/2nd/3rd Weight Sex Type Anes PTL Kavya A1 A5 Name Clin Term Term Term Term Term Term Last Filed Vital Signs Vital Sign Reading Time Taken Comments Blood Pressure 116/60 08/21/2025 1:21 PM CDT Pulse 73 01/03/2025 12:38 PM PANEL SAW OPERATOR Temperature 36.4 C (97.6 F) 12/12/2024 2:23 PM PANEL SAW OPERATOR Respiratory Rate 16 01/03/2025 12:3 8 PM PANEL SAW OPERATOR Oxygen Saturation 94% 12/12/2024 6:00 PM PANEL SAW OPERATOR Inhaled Oxygen Concentration - - Weight 112.6 kg (248 lb 4.8 oz) 08/21/2025 1:21 PM CDT Height 162.6 cm (5' 4) 08/21/2025 1:21 PM CDT Body Mass Index 42.62 08/21/2025 1:21 PM CDT Plan of Treatment Health Maintenance Due Date Last Done Comments Cervical Cancer Screening 1969 Colon Cancer Screening-Colonoscopy 1969 Depression Screening 1969 Hepatitis C Screening 1969 DTaP/Tdap/Td Vaccine (1 - Tdap) 02/10/1980 Hepatitis B Screening 1987 Regular Well Visit/Exam 18-64 1987 Pneumococcal vaccine <65 (1 of 2 - PCV) 02/10/1988 Zoster Vaccine (1 of 2) 2019 Breast Cancer Screening-Mammogram 04/29/2025 024, 07/22/2021 Influenza Vaccine (#1) 2025 Dilated Eye Exam 10/26/2025 10/26/2023 Foot Exam 12/12/2025 12/12/2024, 03/0 02/2024, 10/16/2023, Additional history exists Hemoglobin A1C 02/19/2026 08/21/2025, 02/19, 12/12/2024, Additional history exists Albumin Creatinine Ratio, Urine 03/18/2026 03/18/2025, 01/22/2024, 06/22/2023 Lipid Panel 03/18/2026 03/18/2025, 03/0 02/2024, 06/22/2023, Additional history exists eGFR 03/18/2026 03/18/2025, 11/21, 11/11/2024, Additional history exists Procedures Procedure Name Priority Date/Time Associated Diagnosis Comments XR SPINE LUMBAR 2 OR 3 VIEWS Schedule Routine, Read Routine (OP Routine) 08/26/2025 9:23 AM CDT Low back pain, unspecified back pain laterality, unspecified chronicity, unspecified whether sciatica present HEMOGLOBIN A1C Routine 08/21/2025 EGFR Routine 03/18/2025 2:58 PM CDT Type 2 diabetes mellitus with hyperglycemia, with long-term current use of insulin (HCC) LIPID PANEL Routine 03/18/2025 2:58 PM CDT Type 2 diabetes mellitus with hyperglycemia, with long-term current use of insulin (HCC) ALBUMIN CREATININE RATIO, URINE Routine 03/18/2025 2:58 PM CDT Type 2 diabetes mellitus with hyperglycemia, with long-term current use of insulin (HCC) SCREENING MAMMOGRAM BILATERAL W ELVER Schedule Routine, Read Routine (OP Routine) 04/29/2024 1:48 PM CDT Encounter for screening mammogram for breast cancer DIABETIC EYE EXAM Routine 10/26/2023 10: 11 AM PANEL SAW OPERATOR from Last 3 Months or Most Recently Relevant to Health Maintenance Results * XR Spine Lumbar 2 or 3 Views (08/26/2025 9:23 AM CDT) Anatomical Region Laterality Modality Spine N/A Computed Radiogr aphy 08/27/2025 9:57 PM CDT Narrative 08/27/2025 9:59 PM CDT EXAM DESCRIPTION: XR SPINE LUMBAR 2 OR 3 VIEWS REASON FOR STUDY: LOW BACK PAIN, UNSPECIFIED Complaints of chronic lower back pain. NKI. No known conditions. No prior injuries/surgery to spine. TECHNIQUE: 3 radiographic view(s) of the lumbar spine. COMPARISON: CT abdomen pelvis comparison 11/11/2024. FINDINGS: ALIGNMENT: Slight degenerative retrolisthesis of L 3 on L4. Alignment otherwise is normal. VERTEBRAE: Vertebral body height appears maintained. No acute or focal osseous abnormality evident. DISCS: Severe disc degeneration L5-S1 with moderate disc degeneration at L3-4 with intradiscal gas. Findings are grossly stable. SOFT TISSUES: Cholecystectomy clips right upper abdomen. IMPRESSION: No acute osseous abnormality. Disc degeneration most evident at L5-S1 and L3-4. Slight degenerative retrolisthesis of L3 on L4. THIS IS AN ELECTRONICALLY VERIFIED FINAL REPORT 08/27/2025 9:59 PM - Electronically signed by Beata Fuller M.D. LC: JOSSELYN Report ID: [id number] Reading Location: [id number] Procedure Note Desi Fuller MD - 08/27/2025 EXAM DESCRIPTION: XR SPINE LUMBAR 2 OR 3 VIEWS REASON FOR STUDY: LOW BACK PAIN, UNSPECIFIED Complaints of chronic lower back pain. NKI. No known conditions. No prior injuries/surgery to spine. TECHNIQUE: 3 radiographic view(s) of the lumbar spine. COMPARISON: CT abdomen pelvis comparison 11/11/2024. FINDINGS: ALIGNMENT: Slight degenerative retrolisthesis of L 3 on L4. Alignment otherwise is normal. VERTEBRAE: Vertebral body height appears maintained. No acute or focal osseous abnormality evident. DISCS: Severe disc degeneration L5-S1 with moderate disc degeneration atL3-4 with intradiscal gas. Findings are grossly stable. SOFT TISSUES: Cholecystectomy clips right upper abdomen. IMPRESSION: No acute osseous abnormality. Disc degeneration most evident at L5-S1 and L3-4. Slight degenerative retrolisthesis of L3 on L4. THIS IS AN ELECTRONICALLY VERIFIED FINAL REPORT 08/27/2025 9:59 PM - Electronically signed by Beata Fuller M.D. LC: JOSSELYN Report ID: [id number] Reading Location: [id number] Oswald Cadet MD IMG XR PROCEDURES Final Resul t * (ABNORMAL) Hemoglobin A1c (08/21/2025) SCRIBED Hemoglobin A1c 7.0(A) 4.0 - 5.6 % EXTERNAL LAB Blood 08/21/2025 us Historical Provider MD LAB BLOOD ORDERABLES Federica l Result EXTERNAL LAB * eGFR (03/18/2025 2:58 PM CDT) eGFR 90 >=60 mL/min/1. 73 m2 Comment: Interpretive Data Reference Interval Normal >/= 90 mL/min/1.73m2 Mildly decreased* 60 - 89 mL/min/1.73m2 Mildly to moderately decreased 45 - 59 mL/min/1.73m2 Moderately to severely decreased 30 - 44 mL/min/1.73m2 Severely decreased 15 - 29 mL/min/1.73m2 Kidney Failure < 15 mL/min/1.73m2 *Relative to young adult level Estimated glomerular filtration rate is determined by the 2020 CKD-EPI equation recommended by the National Kidney Foundation (A Unifying Approach to GFR Estimation: Recommendations of the NKF-ASK Task Force on Reassessing the Inclusion of Race in Diagnosing Kidney Disease, JASN 2020). The CKD-EPI equation should not be used for patients with unstable renal function and has not been validated in children and those over 70. Current interpretive data was last reviewed 2021. Testing performed by: [address] [id number] Blood 03/18/2025 2:58 PM CDT 03/18/2025 9:36 PM CDT Radha Fontenot [employer] LAB BLOOD ORDERABLES Final Resu lt Performing Organization Address City/[facility]/ZIP Co de Phone Number [facility] [address] [facility] Department [place] [address] * Albumin Creatinine Ratio, Urine (03/18/2025 2:58 PM CDT) Albumin Ur <12.0 mg/L Comment: Interpretive Data No reference range established. Current interpretive data was last revised 2019. Testing performed by: [address] [id number] Creatinine Ur 73.3 mg/dL RENEE VASQUES Comment: Interpretive Data No reference range established. Current interpretive data was last revised 2019. Testing performed by: [facility], [address] [place] [address]., [id number] Albumin Creatinine Ratio, Ur <16 1 - 29 mg/g RENEE Comment:Testing performed by : [facility], [address] [place] [address]., [id number] Urine 03/18/2025 2:58 PM CDT 03/18/2025 9:09 PM CDT us Radha Fontenot [employer] LAB URINE ORDERABLES Final [facility] [address] Department [place] [address] * (ABNORMAL) Lipid panel (03/18/2025 2:58 PM CDT) Cholesterol 233(H) 30 - 199 mg/dL Comment: Interpretive Data Ages < or = 19 years Acceptable: <170 mg/dL Borderline high: 170-199 mg/dL High: >or= 200 mg/dL Ages > or = 20 years Desirable: <200 mg/dL Borderline high: 200-239 mg/dL High: >or= 240 mg/dL Literature References: 1. Expert Panel on Integrated Guidelines for Cardiovascular Health and Risk Reduction in Children and Adolescents. Pediatrics 2011;128:S213 2. NCEP Expert Panel. Circulation 2004;110:227 Current Interpretive Data was last revised on 2018. Testing performed by: [facility], [address] [place] [address]., [id number] Triglycerides 477(H) <=149 mg/dL RENEE VASQUES Comment: Interpretive Data Ages < or = 9 years Acceptable: <75 mg/dL Borderline high: 75-99 mg/dL High: >or= 100 mg/dL Ages 10 to 20 years Acceptable: <90 mg/dL Borderline high: 90-129 mg/dL High: >or= 130 mg/dL Ages > or = 20 years Desirable: <150 mg/dL Borderline high: 150-199 mg/dL High: 200-499 mg/dL Very high: >or= 499 mg/dL Literature References: 1. Expert Panel on Integrated Guidelines for Cardiovascular Health and Risk Reduction in Children and Adolescents. Pediatrics 2011;128:S213 2. NCEP Expert Panel. Circulation 2004;110:227 Current Interpretive Data was last revised on 2018. Testing performed by: [facility], [address] [place] [address]., [id number] HDL 26(L) >=40 mg/dL RENEE Comment: Interpretive Data Ages < or = 19 years Acceptable: >45 mg/dL Borderline low: 40-45 mg/dL Low: <40 mg/dL Ages > or = 20 years Desirable: >or= 60 mg/dL Low: <40 mg/dL Literature References: 1. Expert Panel on Integrated Guidelines for Cardiovascular Health and Risk Reduction in Children and Adolescents. Pediatrics 2011;128:S213 2. NCEP Expert Panel. Circulation 2004;110:227 Current Interpretive Data was last revised on 2018. Testing performed by: [facility], [address] [place] [address]., [id number] LDL, calculated See Comment <=129 mg/dL RENEE Comment: Unable to calculate due to elevated Triglycerides. Interpretive Data Ages < or = 19 years Acceptable: <110 mg/dL Borderline high: 110-129 mg/dL High: >or= 130 mg/dL Ages > or = 20 years Optimal: <100 mg/dL Near optimal: 100-129 mg/dL Borderline high: 130-159 mg/dL High: >160 mg/dL Calculated using the Tra LDL-C estimating equation. This equation was implemented on 2024. Prior to this date LDL-C was estimated using the Friedewald equation. Literature References: 1. Expert Panel on Integrated Guidelines for Cardiovascular Health and Risk Reduction in Children and Adolescents. Pediatrics 2011;128:S213 2. NCEP Expert Panel. Circulation 2004;110:227 3. Tra Maddox et al. NATHALIE Cardiol. 2020 March 20;5(5):540-548. doi: 10.1001/jamacardio.2020.0013 Current Interpretive Data was last revised on 2024. Testing performed by: [facility], [address] [place] [address]., [id number] Non-HDL Cholesterol 207 mg/dL RENEE Comment: Interpretive Data Ages < or = 19 years Acceptable: <120 mg/dL Borderline high: 120-144 mg/dL High: >145 mg/dL Ages > or = 20 years When triglycerides are >200 mg/dL, Non-HDL cholesterol is a secondary target of therapy with treatment goals that are 30 mg/dL greater than the LDL cholesterol target. Literature References: 1. Expert Panel on Integrated Guidelines for Cardiovascular Health and Risk Reduction in Children and Adolescents. Pediatrics 2011;128:S213 2. NCEP Expert Panel. Circulation 2004;110:227 Current Interpretive Data was last revised on 2018. Testing performed by: [address] [id number] Chol/HDL ratio 9 [facility] Comment:Testing performed by : [address] [address] Blood 03/18/2025 2:58 PM CDT 03/18/2025 9:09 PM CDT Narrative [facility] - 03/18/2025 10:33 PM CDT These lab test should be done fasting. This means do not eat or drink for at least 12 hours prior to getting your blood drawn. Has the patient been fasting for 8 hours or more?->Yes us Radha Fontenot NP LAB BLOOD ORDERABLES Final Resu lt [address] Department [place] [address] * Screening Mammogram Bilateral W Elver (04/29/2024 1:48 PM CDT) Anatomical Region Laterality Modality Breast Bilateral Mammography 04/29/2024 2:46 PM CDT Impressions 04/29/2024 2:46 PM CDT There is no mammographic evidence of malignancy. A 1 year screening mammogram is recommended. BI-RADS: 1 - Negative. The patient has been or will be contacted. The patient will be entered into a reminder system with a target due date of 1 year for her next mammogram. Electronically signed by: Justyn Crain M.D. Narrative 04/29/2024 2:46 PM CDT EXAMINATION: SCREENING MAMMOGRAM BILATERAL W EL[place] ORDERING HEALTHCARE PROVIDER: OSWALD CADET HISTORY: Routine screening mammography. COMPARISON: 07/22/2021, 05/05/2014, 04/24/2014 TECHNIQUE: CC and MLO views of the bilateral breasts were obtained with digital technique using breast tomosynthesis with C view. Computer aided detection was utilized. FINDINGS: DENSITY: The tissue of the bilateral breasts is almost entirely fatty. BREASTS: There are no suspicious masses, suspicious calcifications, or other suspicious findings in either breast. There has been no suspicious interval change. 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) Historical Provider HEALTH MAINTENANCE Final Result from Last 3 Months or Most Recently Relevant to Health Maintenance Insurance [facility] Advance Directives For more information, please contact: [phone] * Full Code (Latest Code Status on File) Date Activated Date Inactivated Comments 10/10/2021 11:01 PM 10/13/2021 2:27 PM * Full Code Date Activated Date Inactivated Comments 11/24/2020 2:41 AM 11/25/2020 8:23 PM Care Teams [employer] Relationship Specialty Start Date End Date Oswald Cadet MD [address] [place] [address] [address] GARCIA B [address] [address] PCP - General Family Medicine 06/07/23 Oswald Cadet MD [address] [facility] [place] [address] 06/07/23
== END 2025-09-04 11:29 | disposition home or self-care (01) ==
PROVIDERS: Emergency Provider Nurse Practitioner; PCP Family Medicine
DX: N61.0 Mastitis without abscess (principal); E11.9 Type 2 diabetes mellitus without complications; I10 Essential (primary) hypertension; I25.2 Old myocardial infarction; Z79.899 Other long term (current) drug therapy; Z79.1 Long term (current) use of non-steroidal anti-inflammatories (NSAID); Z79.4 Long term (current) use of insulin
CPT/HCPCS: 99213; G0463